=== PATIENT | female | born 1950 | race Caucasian/White ===

== ENCOUNTER 2017-12-26 10:59 | Inpatient (IN) ==
[2017-12-26] MEDS ORDERED: ALBUTEROL/IPRATROPIUM 2.5mg-0.5mg/3ml NEB AEROSOL ONE (11:12)
[2017-12-26] MEDS ORDERED: SALINE FLUSH 10ml SYRINGE IVF PRN (11:12)
--- NOTE | 2017-12-26 11:15 | Emergency Department Report ---
General Adult HPI - General Chief complaint: Shortness of Breath/Dyspnea Stated complaint: diff breathing Time Seen by Provider: 12/26/17 11:14 Source: patient, family Mode of arrival: wheelchair Limitations: no limitations - History of Present Illness HPI narrative: Patient is a 67-year-old female, history of lung cancer with multiple metastases different lobes, prior left lower lobe lobectomy. Patient resists the ER for increasing shortness of air. Patient chronically on 4 L by nasal cannula home last week patient's had increasing dyspnea especially with exertion. This is also exacerbated in the last 24 hours. Patient was turned up from her normal 4 L to 6 L by her family, finally today still not having adequate air intake patient was brought to the ER for evaluation on arrival patient placed on high flow nasal cannula at 8 to maintain oxygen saturations at 90%. Patient denies any chest pain at this time. - Related Data Home Medications Medication Instructions Recorded Confirmed Albuterol Sulfate [Proair Hfa] 2 puff INH Q4H PRN 12/26/17 12/26/17 Benzonatate 100 mg PO TID PRN 12/26/17 12/26/17 Erlotinib HCl [Tarceva] 100 mg PO DAILY 12/26/17 12/26/17 Gabapentin 300 mg PO TID 12/26/17 12/26/17 Hydrocodone/APAP 7.5/325 [[place] 1 tab PO QID PRN 12/26/17 12/26/17 7.5/325] Losartan [Cozaar] 50 mg PO DAILY 12/26/17 12/26/17 Megestrol Acetate 800 mg PO DAILY 12/26/17 12/26/17 Meloxicam 7.5 mg PO BID 12/26/17 12/26/17 Metformin HCl 1,000 mg PO BID 12/26/17 12/26/17 Promethazine + Cod Liq [Phenergan 5 ml PO Q4H PRN 12/26/17 12/26/17 + Codeine] Rivaroxaban [Xarelto] 20 mg PO HS 12/26/17 12/26/17 Triamcinolone 0.5% Cream 15 G 1 applicatio TOP BID PRN 12/26/17 12/26/17 [Kenalog 0.5%] Allergies Allergy/AdvReac Type Severity Reaction Status Date / Time adhesive tape Allergy Intermediate Itching Verified 12/26/17 11:21 promethazine AdvReac Unknown Verified 12/26/17 11:21 Review of Systems Constitutional: Denies: fever, chills, weakness Eyes: Denies: eye pain, eye discharge, vision change ENT: Denies: throat pain, dental pain Cardiovascular: Reports: dyspnea on exertion. Denies: chest pain, palpitations Respiratory: Reports: dyspnea. Denies: cough, wheezes Gastrointestinal: Denies: abdominal pain, nausea, vomiting Genitourinary: Denies: dysuria, frequency Neurological: Denies: headache Psychiatric: Denies: anxiety Endocrine: Reports: fatigue Hematological/Lymphatic: Denies: easy bleeding Physical Exam - General General appearance: alert - Head Head exam: normocephalic - Eye Eye exam: Present: PERRL, EOMI - ENT ENT exam: Present: normal oropharynx, mucous membranes moist, TM's normal bilaterally - Neck Neck exam: Present: full ROM, trachea midline - Chest Chest inspection: Present: symmetric chest wall rise - Respiratory Respiratory exam: Present: respiratory distress, prolonged expiratory phase, crackles. Absent: wheezes - Cardiovascular Cardiovascular exam: Present: regular rate, normal rhythm, normal heart sounds - Abdominal Exam Abdominal exam: Present: soft, normal bowel sounds. Absent: distention, tenderness - Skin Skin exam: Present: warm, dry - Neurological Exam Neurological exam: Present: alert, oriented X3 Medical Decision Making - Medical Records Medical records reviewed: Yes: I reviewed the patient's medical records. - Lab Data Lab results reviewed: Yes: I reviewed the patient's lab results. Result diagrams: 01/02/18 04:27 01/04/18 04:47 - Radiology Data Radiology results reviewed: Yes: I reviewed the patient's radiology results. Chest x-ray: Worsening left-sided disease CT chest: Small pulmonary embolus, worsening metastatic disease - EKG Data EKG #1 EKG attestation: Yes: I reviewed and interpreted this EKG. EKG shows normal: sinus rhythm Rate: normal Rhythm: NSR [place]/QRS: LBBB Interpretation: no acute changes Disposition Clinical Impression: Pulmonary embolism Disposition: To [facility] [place] Care Condition: Stable - Seen By: physician
[2017-12-26] MEDS ORDERED: METHYLPREDNISOLONE SOD SUCC 125mg/2ml INJECTION IVP ONE (11:27)
[2017-12-26] MEDS ORDERED: LEVOFLOXACIN PB 750 MG/150 ML BAG IV ONE (11:27)
[2017-12-26] MEDS ORDERED: ONDANSETRON 4 MG/2 ML INJECTION IVP ONE (11:50)
[2017-12-26] MEDS ORDERED: IOHEXOL 350mg/ml 75ml INJECTION ONE (12:32)
[2017-12-26] MEDS ORDERED: SALINE FLUSH 10ml SYRINGE ONE (12:32)
--- NOTE | 2017-12-26 12:39 | XRay Report ---
INDICATION: history of right lower lobe cancer/resection, increasing dys PROCEDURE: CHEST 2-VIEWS UPRIGHT (PA & LAT) Encounter: Initial COMPARISON: Chest CT dated June 21, 2017 FINDINGS: Worsening aeration of the left lung which is also completely consolidated with severe atelectasis and minimal aerated left upper lobe remaining. Large right upper lobe and right hilar masses are redemonstrated, similar to the prior CT scan. No pneumothorax. No significant right pleural fluid. Heart size and mediastinal contours are obscured by the left sided processes. Right IJ port catheter remains in place. Colonic interposition underneath the elevated left hemidiaphragm. Impression: Worsening appearance of the left chest with minimal aerated lung remaining. .
--- NOTE | 2017-12-26 13:18 | CT Scan Report ---
Indication: respiratory distress, right lower lobe lobectomy lung cancer PROCEDURE: CT angio pulm emboli: Encounter: Initial Comparison: Chest CT dated June 21, 2017 and CTA chest dated November 18, 2015 Technique: Axial CT pulmonary angiographic phase images were performed through the chest after the administration of intravenous contrast. Coronal and Sagittal MIP reconstructed images were created and reviewed. Automated Exposure Control and Iterative Reconstruction dose reducing techniques were utilized. Contrast: Omnipaque 350 60 mL Findings: Pulmonary arteries: Exam is diagnostic to the subsegmental pulmonary arterial level. There is abrupt cut off within a right lower lobe segmental pulmonary artery seen on axial thin slice image #122 and coronal image #56. This appearance is a change from the 2016 CTA. No other filling defects identified. Prior left lower lobectomy. Other findings: Enlarging right upper upper lobe pulmonary masses which have become confluent on axial image #16 measuring 7.1 x 5.1 cm in total size. When measured separately the more anterior right upper lobe mass measures 5.4 cm compared to 4.7 cm on the previous. Right lower lobe mass on axial image #26 is also enlarged now measuring 8.5 cm in maximal diameter compared to 8 cm previously. Additional smaller right middle lobe nodules show similar increases in size. There is more confluent mass in the right hilar region. Prior left lower lobectomy with significant consolidation in the remaining left upper lobe with multiple air bronchograms and bronchiectasis. There is minimal aerated lung tissue remaining. Small left pleural effusion. Heart size is stable. Small pericardial effusion anteriorly is new. No axillary adenopathy. The upper abdomen shows left renal stones but no acute findings. Impression: 1. Small area of right lower lobe PE. 2. Worsening pulmonary metastatic disease with minimal remaining aerated left lung parenchyma. Findings were discussed with the ordering physician at 1310 on December 26, 2017. .
[2017-12-26] MEDS ORDERED: NS FLUSH BAG 500ml IV PRN (14:16)
[2017-12-26] MEDS ORDERED: SENNA + DOCUSATE TABLET PO PRN (15:16)
[2017-12-26] MEDS ORDERED: ACETAMINOPHEN 325 MG TABLET PO PRN (15:16)
[2017-12-26] MEDS ORDERED: VANCOMYCIN - PHARMACY CONSULT MC ONE (15:16)
[2017-12-26] MEDS ORDERED: ONDANSETRON 4 MG/2 ML INJECTION IVP PRN (15:16)
--- NOTE | 2017-12-26 15:40 | Pharmacy Consult-Antibiotics ---
Pharmacy Consult-Vancomycin - Laboratory Information WBC 8.2 T/MM3 (4.5-11.0) 12/26/17 11:31 BUN 19.0 MG/DL (7-17) H 12/26/17 11:31 Creatinine 0.8 mg/dL (0.7-1.2) 12/26/17 11:31 - Consult Information VANCOMYCIN CONSULT: Today's SCr = 0.8 mg/dl. Will give Vancomycin 1250mg IV q18hrs. Will continue to monitor and make adjustments accordingly. Thank you.
[2017-12-26] MEDS: CEFEPIME 1 GM in NS 100 ML IV SCH ×2 (15:58→21:31)
[2017-12-26] MEDS: HYDROCODONE/APAP 7.5 MG/325 MG TABLET PO PRN ×2 (16:17→22:42)
[2017-12-26] MEDS ORDERED: BENZONATATE 100 MG CAPSULE PO PRN (17:14)
[2017-12-26] MEDS ORDERED: PROMETHAZINE/CODEINE ORAL LIQUID 5ml PO PRN (17:14)
[2017-12-26] MEDS ORDERED: HYDROCODONE/APAP 7.5 MG/325 MG TABLET PO PRN (17:14)
--- NOTE | 2017-12-26 17:17 | History & Physical Report ---
History of Present Illness Date: 12/27/17 Chief complaint: SOB HPI: 67-year-old woman with known metastatic lung cancer developing increasing shortness of breath over several days with malaise. She did state however she felt a sudden decline yesterday in respiratory function. 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 She feels altogether unwell and has been unable to get up and I even manage her own toileting at this point despite 3 to 4 L of oxygen. Emergency room in respiratory distress at 8 L to hold her saturation to 90% Past Medical History Medical History: Medical History (Last Updated 12/27/17 @ 21:45 by Jhonny García MD) COPD (chronic obstructive pulmonary disease) Metastatic primary lung cancer Pulmonary embolism Surgical History: Left upper lobectomy Family History: No Significant Family History - Social History Smoking status: Never smoker Previous occupational history: former nurse Medications Home Medications Medication Instructions Recorded Confirmed Type Albuterol Sulfate [Proair Hfa] 2 puff INH Q4H PRN 12/26/17 12/26/17 History Benzonatate 100 mg PO TID PRN 12/26/17 12/26/17 History Erlotinib HCl [Tarceva] 100 mg PO DAILY 12/26/17 12/26/17 History Gabapentin 300 mg PO TID 12/26/17 12/26/17 History Hydrocodone/APAP 7.5/325 [[place] 1 tab PO QID PRN 12/26/17 12/26/17 History 7.5/325] Losartan [Cozaar] 50 mg PO DAILY 12/26/17 12/26/17 History Megestrol Acetate 800 mg PO DAILY 12/26/17 12/26/17 History Meloxicam 7.5 mg PO BID 12/26/17 12/26/17 History Metformin HCl 1,000 mg PO BID 12/26/17 12/26/17 History Promethazine + Cod Liq [Phenergan 5 ml PO Q4H PRN 12/26/17 12/26/17 History + Codeine] Rivaroxaban [Xarelto] 20 mg PO HS 12/26/17 12/26/17 History Triamcinolone 0.5% Cream 15 G 1 applicatio TOP BID PRN 12/26/17 12/26/17 History [Kenalog 0.5%] Allergies Allergy/AdvReac Type Severity Reaction Status Date / Time adhesive tape Allergy Intermediate Itching Verified 12/26/17 11:21 promethazine AdvReac Unknown Verified 12/26/17 11:21 Exam Vital Signs: Temperature 96.9 F 12/26/17 15:16 Pulse Rate 103 H 12/26/17 15:16 Respiratory Rate 30 H 12/26/17 15:16 Blood Pressure 109/67 12/26/17 15:16 Pulse Oximetry 92 12/26/17 15:16 Telemetry Rhythm: Sinus Tachycardia Height/Weight/BMI: Height 4 ft 11 in Weight 54.2 kg Body Mass Index 24.1 - Constitutional Present: moderate distress, thin - Routine HEENT Exam Head: Present: normocephalic, atraumatic Eye: Present: EOMI, PERRL, normal accommodation ENT: Present: mucous membranes moist, dentition normal - Routine Respiratory Exam Present: accessory muscle use, dyspnea, respiratory distress, wheezes, diminished air movement - Routine Cardiovascular Exam Present: S1, S2, tachycardia - Routine Abdominal Exam Present: soft, normoactive bowel sounds. Absent: tenderness - Routine Extremities Exam Present: normal capillary refill - Routine Skin Exam Present: dry, warm - Routine Neurological Exam Present: alert, oriented X3, CN II-XII intact - Routine Psychiatric Exam Present: normal affect Results - Labs CBC & Chem 7: 12/26/17 11:31 12/26/17 11:31 Microbiology Results: Microbiology 12/26/17 11:45 Peripheral/Iv Start Blood Culture - Preliminary Culture Initiated - Results Pending 12/26/17 11:39 Peripheral/Iv Start Blood Culture - Preliminary Culture Initiated - Results Pending - Imaging and Cardiology Chest x-ray Status: image reviewed by me (likely development of obstructive pneumonia. Reviewed and correlated CT with this) Additional comments: CT angiogram read by Dr. Najera indicates small acute pulmonary embolus Assessment and Plan (1) Respiratory distress, acute Current visit: Yes Status: Acute (2) Obstructive pneumonia Current visit: Yes Status: Acute (3) Metastatic primary lung cancer Current visit: Yes Status: Acute (4) Pulmonary embolism Current visit: Yes Status: Acute Assessment and Plan: Her previous history pulmonary embolus and has been on maintenance dose of Xarelto. It appears that she has developed a new embolus as well but it is small. She is done very poorly in the past with difficult reactions in the skin from subcutaneous heparinoids and is currently declining the use of them. She may be willing to tolerate IV heparin drip form if this becomes required. We will return to high-dose Xarelto at this point and make sure that this is taken with food for better absorption. Appears in fairly significant distress at rest. I think she is okay to go to the floor she will need of BiPAP initially. There may be some obstructive pneumonia secondary to the multiple lesions of the lung cancer. For this reason she is being placed on broad-spectrum antibiotics. Will also get albuterol breathing treatments and steroids for reduction of airway edema. DISPOSITION: Patient certainly meets inpatient criteria and will likely have a stay of 3 days or longer anticipated. She does have a good support system at home and will likely return there. DVT Prophylaxis: Xarelto Resuscitation Status: Full Code - Physician Narrative Narrative: Date: 12/26/17 Time: 1717 Hospital Course Summary Disclaimer: The visit summary below is not to be considered part of the above Progress Note.
[2017-12-26] MEDS: RIVAROXABAN 15 MG TABLET PO SCH (17:27)
[2017-12-26] MEDS: GABAPENTIN 300 MG CAPSULE PO SCH (21:30)
[2017-12-27] MEDS ORDERED: METHYLPREDNISOLONE SOD SUCC 40mg/ml INJECTION IM SCH (01:00)
[2017-12-27] MEDS: METHYLPREDNISOLONE SOD SUCC 40mg/ml INJECTION IVP SCH ×3 (01:04→18:01)
[2017-12-27] MEDS: CEFEPIME 1 GM in NS 100 ML IV SCH ×4 (03:49→21:19)
[2017-12-27] MEDS: HYDROCODONE/APAP 7.5 MG/325 MG TABLET PO PRN ×2 (07:35→16:24)
[2017-12-27] MEDS: GABAPENTIN 300 MG CAPSULE PO SCH ×3 (09:25→21:19)
[2017-12-27] MEDS: MEGESTROL 800mg/20ml ORAL LIQUID PO SCH (09:25)
[2017-12-27] MEDS: RIVAROXABAN 15 MG TABLET PO SCH ×2 (09:25→18:01)
[2017-12-27] MEDS: LEVOFLOXACIN PB 750 MG/150 ML BAG IV SCH ×2 (14:03→14:37)
[2017-12-27 16:46] VITALS: BMI 24.5
--- NOTE | 2017-12-27 22:01 | Progress Note ---
- Date 12/27/17 Subjective: Wean from CPAP overnight to nasal cannula and states that she is breathing significant better today. She is feeling less ill and malaise as well. States she feels overall that she is improving Objective Vital signs: Temperature 95.9 F L 12/27/17 15:44 Pulse Rate 91 12/27/17 15:44 Respiratory Rate 20 12/27/17 15:44 Blood Pressure 125/63 12/27/17 15:44 Pulse Oximetry 98 12/27/17 21:19 Height/Weight/BMI: Height 4 ft 11 in Weight 55.1 kg Body Mass Index 24.5 - Constitutional Present: well nourished, well developed, cooperative - Routine HEENT Exam Eye: Present: EOMI ENT: Present: mucous membranes moist, dentition normal - Routine Respiratory Exam Present: respiratory distress, wheezes, diminished air movement - Routine Cardiovascular Exam Present: RRR. Absent: murmur - Routine Abdominal Exam Present: soft, normoactive bowel sounds, non distended. Absent: tenderness - Routine Extremities Exam Present: normal capillary refill - Routine Skin Exam Present: dry, warm - Routine Neurological Exam Present: alert, oriented X3, CN II-XII intact - Routine Lymphatic Exam Lymphatic: Absent: adenopathy - Routine Psychiatric Exam Present: normal affect Results - Labs CBC & Chem 7: 12/26/17 11:31 12/26/17 11:31 Microbiology Results: Microbiology 12/26/17 11:39 Peripheral/Iv Start Blood Culture - Preliminary No Growth After 1 Day 12/26/17 11:45 Peripheral/Iv Start Gram Stain - Final 12/26/17 11:45 Peripheral/Iv Start Blood Culture - Preliminary Streptococcus species Assessment and Plan (1) Respiratory distress, acute Current visit: Yes Status: Acute (2) Obstructive pneumonia Current visit: Yes Status: Acute (3) Metastatic primary lung cancer Current visit: Yes Status: Acute (4) Pulmonary embolism Current visit: Yes Status: Acute Assessment and Plan: Overall she appears to be showing improvement. Overall she appears to be shown improvement. Continue antibiotics for the suspected obstructive pneumonia. Continue albuterol and steroids for respiratory support. Pulmonary embolus small and likely will be effectively treated with the increased dosage of Xarelto. Wean oxygen to a baseline 3 to 4 L Remain in hospital at this time DVT Prophylaxis: Xarelto Resuscitation Status: Full Code - Time spent with patient Time with patient PN: 30 minutes - Physician Narrative Narrative: Date: 12/27/17 Time: 2156 Hospital Course Summary Disclaimer: The visit summary below is not to be considered part of the above Progress Note.
[2017-12-28] MEDS: METHYLPREDNISOLONE SOD SUCC 40mg/ml INJECTION IVP SCH ×3 (00:36→17:26)
[2017-12-28] MEDS: HYDROCODONE/APAP 7.5 MG/325 MG TABLET PO PRN ×2 (00:36→21:36)
[2017-12-28] MEDS: SALINE FLUSH 10ml SYRINGE IV PRN ×5 (00:38→17:27)
[2017-12-28] MEDS: CEFEPIME 1 GM in NS 100 ML IV SCH ×4 (02:58→21:39)
[2017-12-28] MEDS: MEGESTROL 800mg/20ml ORAL LIQUID PO SCH (09:00)
[2017-12-28] MEDS: GABAPENTIN 300 MG CAPSULE PO SCH ×3 (09:00→21:36)
[2017-12-28] MEDS: RIVAROXABAN 15 MG TABLET PO SCH ×2 (09:00→18:03)
[2017-12-28] MEDS: LEVOFLOXACIN PB 750 MG/150 ML BAG IV SCH (12:56)
--- NOTE | 2017-12-28 14:14 | Pharmacy Consult-Antibiotics ---
Pharmacy Consult-Vancomycin - Laboratory Information WBC 17.6 T/MM3 (4.5-11.0) H D 12/28/17 12:17 BUN 27.0 MG/DL (7-17) H 12/28/17 12:17 Creatinine 0.9 mg/dL (0.7-1.2) 12/28/17 12:17 - Consult Information VANCOMYCIN CONSULT: Vancomycin RANDOM Trough = 20.42 mcg/ml. Today's SCr = 0.9 mg/dl. Will change dose from 1250 mg IV q18hrs to Vancomycin 1000 mg IV q12hrs. Patient's new calculated dose from the random Vanco level 8 hours after her 1250 mg dose showed that her interval should be decreased from q18hrs to q12hrs and the dose adjusted with that interval change. This change should keep her trough from going below 15 but not above 20. Will continue to monitor and make adjustments accordingly. Thank you. Estefania Butcher, PharmD
[2017-12-28] MEDS: VANCOMYCIN 1,000 MG in NS 250 ML IV SCH (17:26)
[2017-12-29] MEDS: HYDROCODONE/APAP 7.5 MG/325 MG TABLET PO PRN ×4 (02:00→23:28)
[2017-12-29] MEDS: CEFEPIME 1 GM in NS 100 ML IV SCH ×4 (03:31→20:39)
[2017-12-29] MEDS: VANCOMYCIN 1,000 MG in NS 250 ML IV SCH ×2 (05:55→16:21)
[2017-12-29] MEDS: MEGESTROL 800mg/20ml ORAL LIQUID PO SCH (09:37)
[2017-12-29] MEDS: GABAPENTIN 300 MG CAPSULE PO SCH ×3 (09:37→20:39)
[2017-12-29] MEDS: RIVAROXABAN 15 MG TABLET PO SCH ×2 (09:37→17:15)
[2017-12-29] MEDS: SALINE FLUSH 10ml SYRINGE IV PRN ×3 (09:41→16:22)
[2017-12-29] MEDS: LEVOFLOXACIN PB 750 MG/150 ML BAG IV SCH (12:22)
--- NOTE | 2017-12-29 18:58 | Progress Note ---
- Date 12/28/17 Subjective: Patient states feeling tired but overall feels that her breathing has been improving. Admits to feeling restless at night and having difficulty sleeping however. Objective Vital signs: Temperature 96.8 F 12/29/17 14:54 Pulse Rate 89 12/29/17 14:54 Respiratory Rate 22 12/29/17 14:54 Blood Pressure 114/65 12/29/17 14:54 Pulse Oximetry 93 12/29/17 14:54 Rhythm: Normal Sinus Rhythm Height/Weight/BMI: Height 4 ft 11 in Weight 58.9 kg Body Mass Index 24.5 - Constitutional Present: no acute distress, well nourished, well developed, cooperative - Routine HEENT Exam Eye: Present: EOMI ENT: Present: mucous membranes moist, dentition normal - Routine Respiratory Exam Present: diminished air movement. Absent: respiratory distress, wheezes - Routine Cardiovascular Exam Present: RRR. Absent: murmur - Routine Abdominal Exam Present: soft, normoactive bowel sounds, non distended. Absent: tenderness - Routine Extremities Exam Present: normal capillary refill - Routine Skin Exam Present: dry, warm - Routine Neurological Exam Present: alert, oriented X3, CN II-XII intact - Routine Lymphatic Exam Lymphatic: Absent: adenopathy - Routine Psychiatric Exam Present: normal affect Results - Labs CBC & Chem 7: 12/29/17 03:56 12/29/17 03:56 Microbiology Results: Microbiology 12/26/17 11:39 Peripheral/Iv Start Blood Culture - Preliminary No Growth After 3 Days 12/26/17 11:45 Peripheral/Iv Start Gram Stain - Final 12/26/17 11:45 Peripheral/Iv Start Blood Culture - Preliminary Streptococcus viridans group Assessment and Plan (1) Respiratory distress, acute Current visit: Yes Status: Acute (2) Obstructive pneumonia Current visit: Yes Status: Acute (3) Metastatic primary lung cancer Current visit: Yes Status: Acute (4) Pulmonary embolism Current visit: Yes Status: Acute Assessment and Plan: Patient does appear less acutely ill today. Continue antibiotics broad- spectrum. Patient remains on oxygen however she is on 3 L at base level at home. Would consider anxiolytic medications as necessary. Remain in hospital at this time - Physician Narrative Narrative: Date: 12/29/17 Time: 1857 Hospital Course Summary Disclaimer: The visit summary below is not to be considered part of the above Progress Note.
--- NOTE | 2017-12-29 18:59 | Progress Note ---
- Date 12/29/17 Subjective: Patient having some increased respiratory distress and requested resumption of her albuterol inhaler Objective Vital signs: Temperature 96.8 F 12/29/17 14:54 Pulse Rate 89 12/29/17 14:54 Respiratory Rate 22 12/29/17 14:54 Blood Pressure 114/65 12/29/17 14:54 Pulse Oximetry 93 12/29/17 14:54 Rhythm: Normal Sinus Rhythm Height/Weight/BMI: Height 4 ft 11 in Weight 58.9 kg Body Mass Index 24.5 - Constitutional Present: well developed - Routine HEENT Exam Eye: Present: EOMI ENT: Present: mucous membranes moist, dentition normal - Routine Respiratory Exam Present: accessory muscle use, wheezes - Routine Cardiovascular Exam Present: RRR. Absent: murmur - Routine Abdominal Exam Present: soft, normoactive bowel sounds, non distended. Absent: tenderness - Routine Extremities Exam Present: normal capillary refill - Routine Skin Exam Present: dry, warm - Routine Neurological Exam Present: alert, oriented X3, CN II-XII intact - Routine Lymphatic Exam Lymphatic: Absent: adenopathy - Routine Psychiatric Exam Present: normal affect Results - Labs CBC & Chem 7: 12/29/17 03:56 12/29/17 03:56 Microbiology Results: Microbiology 12/26/17 11:39 Peripheral/Iv Start Blood Culture - Preliminary No Growth After 3 Days 12/26/17 11:45 Peripheral/Iv Start Gram Stain - Final 12/26/17 11:45 Peripheral/Iv Start Blood Culture - Preliminary Streptococcus viridans group Assessment and Plan (1) Respiratory distress, acute Current visit: Yes Status: Acute (2) Obstructive pneumonia Current visit: Yes Status: Acute (3) Metastatic primary lung cancer Current visit: Yes Status: Acute (4) Pulmonary embolism Current visit: Yes Status: Acute Assessment and Plan: Patient has been placed on DuoNeb treatment 4 times a day. Breakthrough medication of albuterol at at nebulized unit dose as well. Patient has been feeling moderately nervous and for this reason we're discontinuing steroids at this time Remain on antibiotics for likely post obstructive pneumonia. Continue on Xarelto has no alternative to heparinoids the patient's request. Remain in hospital at this time DVT Prophylaxis: Xarelto - Physician Narrative Narrative: Date: 12/29/17 Time: 1857 Hospital Course Summary Disclaimer: The visit summary below is not to be considered part of the above Progress Note.
[2017-12-29] MEDS: ALBUTEROL/IPRATROPIUM 2.5mg-0.5mg/3ml NEB AEROSOL SCH (19:14)
[2017-12-29] MEDS: NS FLUSH BAG 500ml IV PRN (20:41)
[2017-12-29] MEDS: ALPRAZolam 0.25 MG TABLET PO PRN (21:04)
[2017-12-30] MEDS: CEFEPIME 1 GM in NS 100 ML IV SCH ×4 (03:33→21:49)
[2017-12-30] MEDS: ALPRAZolam 0.25 MG TABLET PO PRN ×3 (03:58→20:24)
[2017-12-30] MEDS: HYDROCODONE/APAP 7.5 MG/325 MG TABLET PO PRN ×3 (05:33→23:34)
[2017-12-30] MEDS: VANCOMYCIN 1,000 MG in NS 250 ML IV SCH ×2 (05:34→18:32)
[2017-12-30] MEDS: ALBUTEROL/IPRATROPIUM 2.5mg-0.5mg/3ml NEB AEROSOL SCH ×4 (08:04→19:05)
[2017-12-30] MEDS: GABAPENTIN 300 MG CAPSULE PO SCH ×3 (09:20→21:55)
[2017-12-30] MEDS: RIVAROXABAN 15 MG TABLET PO SCH ×2 (09:20→18:34)
[2017-12-30] MEDS: MEGESTROL 800mg/20ml ORAL LIQUID PO SCH (09:20)
[2017-12-30] MEDS: FUROSEMIDE 40 MG/4 ML INJECTION IVP SCH ×2 (09:44→15:36)
[2017-12-30] MEDS: LEVOFLOXACIN PB 750 MG/150 ML BAG IV SCH (12:51)
--- NOTE | 2017-12-30 17:39 | Pulmonology Consult Note ---
History of Present Illness Consult date: 12/30/17 Requesting physician: Jhonny García Reason for consult: dyspnea, hypoxemia Chief complaint: short of breath History of present illness: HPI: 67-year-old woman with known metastatic lung cancer, NSCLCA, adenoCA. She was under the care of Dr Porter, but she states that when she was out of treatment options, it seemed as though he "gave up on her." She then sought the care of an oncologist in and was started on Tarceva. She has history of MARILYN lobectomy with subsequent recurrence of her tumor,despite chemoTx. She has now progressed on Tarceva. She is admitted after developing increasing shortness of breath over several days with malaise. She did state however she felt a sudden decline yesterday in respiratory function. She is normally on O2 but is requiring high flow cannula to maintain O2 sats. 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 She feels altogether unwell and has been unable to get up and even manage her own toileting. Emergency room in respiratory distress at 8 L to hold her saturation to 90%. She does have history of PE and was on maintenance dose of Xarelto. She was found to have a small PE by CTA on admission. She states she wants to do anything to stay alive and isn't ready to "kick the bucket." Past Medical History Medical History: Medical History (Last Updated 12/27/17 @ 21:45 by Jhonny García MD) COPD (chronic obstructive pulmonary disease) Metastatic primary lung cancer Pulmonary embolism Surgical History: Left upper lobectomy Family History: No Significant Family History - Social History Smoking status: Never smoker Previous occupational history: former nurse [employer] Patient Stated Medical History Cataracts Yes: R eye Dental Problems Yes: sensitivity due to chemo Hypertension Yes Bronchitis Yes Pneumonia Yes Other Respiratory Yes: pneumothorax Diabetes Mellitus Type 2 Yes Gastroesophageal Reflux Yes Disease Anemia Yes Osteoarthritis Yes MRSA Yes Shingles Yes Blood Transfusions Yes Chemotherapy Yes Clinic Medical History (Last Updated 12/27/17 @ 21:45 by Jhonny García MD) COPD (chronic obstructive pulmonary disease) (Acute Medical) Metastatic primary lung cancer (Acute Medical) Pulmonary embolism (Acute Medical) Surgical History: Left upper lobectomy - Social History Smoking status: Never smoker Previous occupational history: former nurse Medications Home Medications Medication Instructions Recorded Confirmed Type Albuterol Sulfate [Proair Hfa] 2 puff INH Q4H PRN 12/26/17 12/26/17 History Benzonatate 100 mg PO TID PRN 12/26/17 12/26/17 History Erlotinib HCl [Tarceva] 100 mg PO DAILY 12/26/17 12/26/17 History Gabapentin 300 mg PO TID 12/26/17 12/26/17 History Hydrocodone/APAP 7.5/325 [[place] 1 tab PO QID PRN 12/26/17 12/26/17 History 7.5/325] Losartan [Cozaar] 50 mg PO DAILY 12/26/17 12/26/17 History Megestrol Acetate 800 mg PO DAILY 12/26/17 12/26/17 History Meloxicam 7.5 mg PO BID 12/26/17 12/26/17 History Metformin HCl 1,000 mg PO BID 12/26/17 12/26/17 History Promethazine + Cod Liq [Phenergan 5 ml PO Q4H PRN 12/26/17 12/26/17 History + Codeine] Rivaroxaban [Xarelto] 20 mg PO HS 12/26/17 12/26/17 History Triamcinolone 0.5% Cream 15 G 1 applicatio TOP BID PRN 12/26/17 12/26/17 History [Kenalog 0.5%] Allergies Allergy/AdvReac Type Severity Reaction Status Date / Time adhesive tape Allergy Intermediate Itching Verified 12/26/17 11:21 promethazine AdvReac Unknown Verified 12/26/17 11:21 Exam Vital signs: Temperature 97.8 F 12/30/17 14:57 Pulse Rate 118 H 12/30/17 14:57 Respiratory Rate 30 H 12/30/17 14:59 Blood Pressure 140/74 H 12/30/17 14:57 Pulse Oximetry 92 12/30/17 14:59 - Constitutional mild distress Comments: chronically ill appearing - Routine HEENT Exam Eye: Absent: conjunctival icterus ENT: Present: mucous membranes dry - Routine Neck Exam Present: supple, trachea midline - Routine Respiratory Exam Present: accessory muscle use, rhonchi, wheezes - Routine Cardiovascular Exam Present: RRR - Routine Abdominal Exam Present: soft. Absent: guarding - Routine Extremities Exam Absent: cyanosis, clubbing - Routine Skin Exam Absent: rash - Routine Neurological Exam Present: alert, oriented X3. Absent: motor deficit - Routine Psychiatric Exam Present: anxious Results - Laboratory Findings CBC and BMP: 12/29/17 03:56 12/29/17 03:56 PT/INR, D-dimer D-Dimer 6511 NG/ML (0-230) H 12/26/17 11:31 Abnormal lab findings: Abnormal Labs 12/26/17 12/26/17 12/26/17 11:31 11:31 11:31 WBC RBC 3.65 L Hgb 10.4 L Hct 31.8 L Neut % (Auto) 80.4 H Lymph % (Auto) 8.5 L Lymph # (Auto) 0.7 L Neutrophils % (Manual) Lymphocytes % (Manual) Neutrophils # (Manual) Lymphocytes # (Manual) Monocytes # (Manual) D-Dimer 6511 H Chloride 109 H BUN 19.0 H BUN/Creatinine Ratio Glucose Calculated Osmolality Calcium 8.0 L Alkaline Phosphatase 152 H NT-Pro-B Natriuret Pep 2650 H Total Protein 6.0 L Albumin 3.1 L 12/28/17 12/28/17 12/29/17 12:17 12:17 03:56 WBC 17.6 H D 17.1 H RBC 3.59 L 3.56 L Hgb 10.2 L 10.1 L Hct 31.4 L 31.2 L Neut % (Auto) Lymph % (Auto) Lymph # (Auto) Neutrophils % (Manual) 93.0 H 94.0 H Lymphocytes % (Manual) 1.0 L 1.0 L Neutrophils # (Manual) 16.4 H 16.1 H Lymphocytes # (Manual) 0.2 L 0.2 L Monocytes # (Manual) 0.9 H 0.9 H D-Dimer Chloride 109 H BUN 27.0 H BUN/Creatinine Ratio 30 H Glucose 271 H Calculated Osmolality 288 H Calcium 8.3 L Alkaline Phosphatase NT-Pro-B Natriuret Pep Total Protein Albumin 12/29/17 03:56 WBC RBC Hgb Hct Neut % (Auto) Lymph % (Auto) Lymph # (Auto) Neutrophils % (Manual) Lymphocytes % (Manual) Neutrophils # (Manual) Lymphocytes # (Manual) Monocytes # (Manual) D-Dimer Chloride BUN 27.0 H BUN/Creatinine Ratio 30 H Glucose 275 H Calculated Osmolality Calcium 8.1 L Alkaline Phosphatase NT-Pro-B Natriuret Pep Total Protein Albumin - Diagnostic Findings Chest x-ray: report reviewed, image reviewed CT scan - chest: report reviewed, image reviewed Assessment and Plan (1) Acute and chronic respiratory failure with hypoxia Status: Acute Assessment and plan: Likely due to lung cancer, pneumonia and PE. Currently on 10 lpm O2. Does not tolerate NIPPV or Vapotherm due to anxiety. If her O2 sats increase I would recommend trying Vapotherm (HHFNC) again to keep sat > 90% and minimize work of breathing. Current Visit: Yes (2) Obstructive pneumonia Status: Acute Assessment and plan: I agree with empiric antibiotics (Cefepime and Vanco) for pneumonia. She is immune compromised and at risk for severe pneumonia. She is also at risk for drug resistant pathogens due to her medical history. Blood culture 1/2 positive for Strep viridans, unclear significance. Current Visit: Yes (3) Metastatic primary lung cancer Status: Acute Assessment and plan: history of MARILYN lobectomy with recurrence. She has been under treatment with chemoTx and now Tarceva and appears to be worsening in spite of this. Unfortunately her prognosis is very poor Current Visit: Yes - Time Spent With Patient Total time spent is greater than 50% in coordination of care (as documented) at patient's floor/unit and/or counseling patient: 25 - 35 minutes
--- NOTE | 2017-12-30 19:49 | Progress Note ---
- Date 12/30/17 Subjective: On same page this morning she attest to having been increasingly short of breath overnight. On review of chart although the patient is not getting any significant infusions of IV fluids beyond just her multiple antibiotic regimens , she is up 6 kg and will she cannot catch her breath. Objective Vital signs: Temperature 97.8 F 12/30/17 14:57 Pulse Rate 118 H 12/30/17 14:57 Respiratory Rate 18 12/30/17 19:05 Blood Pressure 140/74 H 12/30/17 14:57 Pulse Oximetry 96 12/30/17 19:05 Rhythm: Sinus Tachycardia Height/Weight/BMI: Height 4 ft 11 in Weight 61.6 kg Body Mass Index 24.5 - Constitutional Present: moderate distress, well nourished, well developed, cooperative - Routine HEENT Exam Head: Present: normocephalic, atraumatic Eye: Present: EOMI ENT: Present: mucous membranes moist, dentition normal - Routine Respiratory Exam Present: accessory muscle use, rhonchi. Absent: wheezes - Routine Cardiovascular Exam Present: S1, S2, tachycardia. Absent: murmur - Routine Abdominal Exam Present: soft, normoactive bowel sounds, non distended. Absent: tenderness - Routine Extremities Exam Present: normal capillary refill - Routine Skin Exam Present: dry, warm - Routine Neurological Exam Present: alert, oriented X3, CN II-XII intact - Routine Lymphatic Exam Lymphatic: Absent: adenopathy - Routine Psychiatric Exam Present: normal affect Results - Labs CBC & Chem 7: 12/29/17 03:56 12/29/17 03:56 Microbiology Results: Microbiology 12/26/17 11:39 Peripheral/Iv Start Blood Culture - Preliminary No Growth After 4 Days 12/26/17 11:45 Peripheral/Iv Start Gram Stain - Final 12/26/17 11:45 Peripheral/Iv Start Blood Culture - Preliminary Streptococcus viridans group Assessment and Plan (1) Respiratory distress, acute Current visit: Yes Status: Acute (2) Obstructive pneumonia Current visit: Yes Status: Acute (3) Metastatic primary lung cancer Current visit: Yes Status: Acute (4) Pulmonary embolism Current visit: Yes Status: Acute Assessment and Plan: Account for the developing fluid overload in this patient but we're starting around with 40 mg of Lasix this morning to be repeated again at midafternoon. Hopefully some diuresis will show improvement for her fluid overload. She had been put on a very small dose of Xanax overnight (0.25 mg Q6 hours) this does appear to be helping but it makes her acutely confused and family does show some appropriate concern for this side effect despite the explanation. I've ordered a chest x-ray and this does not appear to be significantly different. EKG is also reassuring that there is been no acute changes. I've explained to the patient that this is not a positive step but we will attempt give fluids off and hopefully improve her overall respiratory distress. I've also contacted pulmonology my appreciation to Dr. Rodriguez for coming to see her so promptly. He recommends HCAP antibiotics and transition off of Xarelto and place her on heparin drip without a loading dose Patient is in fairly significant respiratory distress and critically ill, showing only some mild improvement toward the end of the evening. 50 minutes critical care time without procedures performed. At this time patient remains a full code. - Physician Narrative Narrative: Date: 12/30/17 Time: 1948 Hospital Course Summary Disclaimer: The visit summary below is not to be considered part of the above Progress Note.
[2017-12-30] MEDS: ALBUTEROL 2.5mg/3ml (0.083%) NEB AEROSOL PRN ×2 (21:15→23:42)
[2017-12-30] MEDS ORDERED: FALL RISK - PHARMACY CONSULT MC ONE (23:50)
[2017-12-31] MEDS: ALPRAZolam 0.25 MG TABLET PO PRN ×2 (02:30→08:46)
[2017-12-31] MEDS: CEFEPIME 1 GM in NS 100 ML IV SCH ×4 (03:50→21:26)
[2017-12-31] MEDS: ALBUTEROL/IPRATROPIUM 2.5mg-0.5mg/3ml NEB AEROSOL SCH ×4 (06:37→18:38)
--- NOTE | 2017-12-31 07:19 | XRay Report ---
Indication: dyspnea, 6kg weight gain XR chest 1V: Comparison: 12/26/2017 Technique: Single portable upright chest Findings: Patient continues to show elevated left diaphragm with patchy bilateral infiltrative changes and possible more localized mass density in the right side. Overall finding seems fairly similar to previous examinations. Port remains in place. Overall aeration continues to be poor particularly on the left side. Impression: 1. Similar heart size the previous study with increased density on both sides of the chest. Right side continues to show potentially more localized density with more diffuse infiltrative changes persisting on the left. .
[2017-12-31] MEDS: HYDROCODONE/APAP 7.5 MG/325 MG TABLET PO PRN ×2 (07:20→19:47)
[2017-12-31] MEDS: ALBUTEROL 2.5mg/3ml (0.083%) NEB AEROSOL PRN ×3 (08:35→20:48)
[2017-12-31] MEDS: RIVAROXABAN 15 MG TABLET PO SCH (08:46)
[2017-12-31] MEDS: GABAPENTIN 300 MG CAPSULE PO SCH ×3 (08:46→23:35)
[2017-12-31] MEDS: MEGESTROL 800mg/20ml ORAL LIQUID PO SCH (08:47)
[2017-12-31] MEDS: VANCOMYCIN 1,000 MG in NS 250 ML IV SCH (08:47)
[2017-12-31] MEDS: SALINE FLUSH 10ml SYRINGE IV PRN ×5 (08:48→21:26)
[2017-12-31] MEDS: NS FLUSH BAG 500ml IV PRN (08:48)
[2017-12-31] MEDS ORDERED: HEPARIN - PHARMACY CONSULT MC ONE (09:26)
[2017-12-31] MEDS: METHYLPREDNISOLONE SOD SUCC 125mg/2ml INJECTION IVP SCH ×2 (09:52→21:26)
[2017-12-31] MEDS: LEVOFLOXACIN PB 750 MG/150 ML BAG IV SCH (13:38)
--- NOTE | 2017-12-31 14:17 | Pharmacy Consult-Antibiotics ---
Pharmacy Consult-Vancomycin - Laboratory Information WBC 17.1 T/MM3 (4.5-11.0) H 12/29/17 03:56 BUN 27.0 MG/DL (7-17) H 12/29/17 03:56 Creatinine 0.9 mg/dL (0.7-1.2) 12/29/17 03:56 Vancomycin Trough 28.36 ug/mL (15-20) H* 12/31/17 04:31 - Consult Information VANCOMYCIN CONSULT: Day 6 BRIAN is a 67-year-old woman with known metastatic lung cancer who developed increasing shortness of breath over several days with malaise. She did state however she felt a sudden decline on 12/25 in respiratory function. 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 She felt altogether unwell and has been unable to get up and even manage her own toileting at that point despite 3 to 4 L of oxygen. In the Emergency Room the patient was in respiratory distress at 8 L to hold her saturation to 90 %. Patient assessment: 1) acute respiratory distress, 2) Obstructive pneumonia, 3) Metastatic primary lung cancer, and 4) Pulmonary embolism. I changed the Vancomycin to 1,250 mg mg IV q18hrs starting 12/31 @ 1300. The pharmacy will continue to monitor and make adjustments accordingly. Thank you for the Consult, Maynor Sam, Pharmacist.
--- NOTE | 2017-12-31 14:58 | Pharmacy Consult ---
Pharmacy Consult-Heparin - Laboratory Information Heparin Plt Count 270 T/MM3 (130-400) 12/31/17 13:48 APTT 44.4 SEC (24-36) H 12/31/17 13:47 - Consult Information HEPARIN CONSULT: Day One Dx: Pulmonary embolism BRIAN is a 67-year-old woman with known metastatic lung cancer who developed increasing shortness of breath over several days with malaise. She did state however she felt a sudden decline on 12/25 in respiratory function. 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 She felt altogether unwell and has been unable to get up and even manage her own toileting at that point despite 3 to 4 L of oxygen. In the Emergency Room the patient was in respiratory distress at 8 L to hold her saturation to 90 %. Patient assessed: 1) acute repiratory distress, 2) Obstructive penumonia, 3) Metastatic primary lung cancer, and 4) Pulmonary embolism. Baseline PTT = 44.4 Sec. Baseline platelet count = 270 T/mm3. PTT Target Range = 55-83 Will give Heparin Bolus of 2,000 units, start Heparin Drip at 1,000 units/hr ( 25 ml/hr). The Heparin bag is 20,000 units in D5W 500ml. Started with a lower bolus because patient has been Xarelto 15 mg po bid and had last dose this morning. I am ordering one-half the normal bolus called for in this case. The Pharmacy will continue to monitor and make adjustments accordingly. Thank you, Maynor Sam, Pharmacist.
[2017-12-31] MEDS ORDERED: HEPARIN 1,000unit/ml INJECTION 10ml IVP ONE (15:00)
[2017-12-31] MEDS ORDERED: HEPARIN DRIP 20,000 UNIT/500 ML BAG IV SCH (15:00)
[2017-12-31] MEDS: HALOPERIDOL 5 MG/ML INJECTION IVP PRN (18:40)
--- NOTE | 2017-12-31 19:15 | Progress Note ---
- Date 12/31/17 Subjective: Patient's respiratory distress is still significant but she is having less of a sensation of fluid overload. She still states that she cannot catch her breath and is absolutely exhausted which is the attempt to use the bathroom. A long two -part discussion was ensued discussing code status with patient where she initially placed yourself as it do not intubate. Later this afternoon a 2nd discussion was had with her son and several daughters present in which they as a group opted to not perform any physical cardiopulmonary resuscitation Objective Vital signs: Temperature 98.4 F 12/31/17 07:00 Pulse Rate 115 H 12/31/17 17:37 Respiratory Rate 20 12/31/17 18:38 Blood Pressure 133/69 12/31/17 17:37 Pulse Oximetry 100 12/31/17 18:38 Rhythm: Sinus Tachycardia Height/Weight/BMI: Height 4 ft 11 in Weight 61 kg Body Mass Index 24.5 - Constitutional Present: moderate distress, well developed, cooperative - Routine HEENT Exam Head: Present: normocephalic, atraumatic Eye: Present: EOMI, normal accommodation ENT: Present: mucous membranes moist, dentition normal - Routine Respiratory Exam Present: respiratory distress, rhonchi, wheezes, diminished air movement - Routine Cardiovascular Exam Present: RRR. Absent: murmur - Routine Abdominal Exam Present: soft, normoactive bowel sounds, non distended. Absent: tenderness - Routine Extremities Exam Present: normal capillary refill - Routine Skin Exam Present: dry, warm - Routine Neurological Exam Present: alert, oriented X3, CN II-XII intact - Routine Lymphatic Exam Lymphatic: Absent: adenopathy - Routine Psychiatric Exam Present: normal affect Results - Labs CBC & Chem 7: 12/31/17 13:48 12/31/17 13:48 Microbiology Results: Microbiology 12/26/17 11:39 Peripheral/Iv Start Blood Culture - Final No Growth After 5 Days 12/26/17 11:45 Peripheral/Iv Start Gram Stain - Final 12/26/17 11:45 Peripheral/Iv Start Blood Culture - Preliminary Streptococcus viridans group - ABG Interpretation ABG results: 12/31/17 14:01 ABG pH 7.324 L ABG pCO2 46 H ABG pO2 110.1 H ABG HCO3 23.6 ABG Total CO2 25.0 ABG O2 Saturation 97.8 ABG Base Excess -2.5 L Assessment and Plan (1) Respiratory distress, acute Current visit: Yes Status: Acute (2) Obstructive pneumonia Current visit: Yes Status: Acute (3) Metastatic primary lung cancer Current visit: Yes Status: Acute (4) Pulmonary embolism Current visit: Yes Status: Acute Assessment and Plan: Patient did not improve significantly with Lasix. Although she believes that she is urinate a lot her weights of not decline much. Still she does sound less wet on auscultation today. We will continue the broad-spectrum age Antibiotics cefepime vancomycin and Levaquin for her at this time. She was unavailable therm throughout the majority of the day but I believe that she may benefit from BiPAP. We are placing her back on BiPAP again for the night. And based upon her respiratory improvement then we may make further decisions. I also restarted her on her Solu-Medrol because ceasing this did coincide with her decline and respiratory function. She is noted lead anxious due to the understanding of her impending demise from cancer as well as the physiologic respiratory distress. She becomes altered on Xanax so we are performing a trial of low doses of Geodon as well as Ativan as alternatives. We can make further modifications based upon a response to those Outcome remains poor and I am uncertain if she will even improve enough to leave the hospital. She does remain significantly hopeful they'll and motivated because of her many children and grandchildren to put up the best fight that she possibly can After 2 conversations each 20 minutes or longer with family, the decision to abstain from intubation and cardiopulmonary resuscitation has been made. She is comfortable with the idea of antiarrhythmic's and a chemical code - Time spent with patient Time with patient PN: 50 minutes - Physician Narrative Physician: other Narrative: Date: 12/31/17 Time: 1911 Hospital Course Summary Disclaimer: The visit summary below is not to be considered part of the above Progress Note.
[2018-01-01] MEDS: CEFEPIME 1 GM in NS 100 ML IV SCH ×4 (03:06→21:04)
[2018-01-01] MEDS: SALINE FLUSH 10ml SYRINGE IV PRN ×10 (03:06→22:17)
[2018-01-01] MEDS: ALBUTEROL/IPRATROPIUM 2.5mg-0.5mg/3ml NEB AEROSOL SCH ×4 (08:13→22:36)
[2018-01-01] MEDS: GABAPENTIN 300 MG CAPSULE PO SCH ×3 (09:00→21:04)
[2018-01-01] MEDS: MEGESTROL 800mg/20ml ORAL LIQUID PO SCH (09:01)
[2018-01-01] MEDS: METHYLPREDNISOLONE SOD SUCC 125mg/2ml INJECTION IVP SCH ×2 (09:01→21:04)
[2018-01-01] MEDS: HEPARIN DRIP 20,000 UNIT/500 ML BAG IV SCH (09:09)
[2018-01-01] MEDS: HALOPERIDOL 5 MG/ML INJECTION IVP PRN (10:37)
--- NOTE | 2018-01-01 11:41 | Progress Note ---
- Date 01/01/18 Subjective: Patient was hallucinating this morning, thinking there was a man at the end of her bed. She's been refusing bipap. She hasn't been eating well and when she does eat she becomes dyspneic. She's been started on Haldol and lorazepam was ordered in place of xanax. Objective Vital signs: Temperature 97.7 F 01/01/18 11:34 Pulse Rate 114 H 01/01/18 11:34 Respiratory Rate 20 01/01/18 11:34 Blood Pressure 130/70 01/01/18 11:34 Pulse Oximetry 95 01/01/18 11:34 Rhythm: Sinus Tachycardia Height/Weight/BMI: Height 1.5 m Weight 62.7 kg Body Mass Index 24.5 - Constitutional Present: moderate distress, well nourished, well developed - Routine HEENT Exam Eye: Absent: conjunctival icterus, scleral injection - Routine Respiratory Exam Present: accessory muscle use, decreased breath sounds, respiratory distress, rhonchi, wheezes - Routine Cardiovascular Exam Present: RRR, S1, S2 - Routine Abdominal Exam Present: soft, normoactive bowel sounds, non distended, non tender - Routine Extremities Exam Present: no edema - Routine Musculoskeletal Exam Musculoskeletal: Present: moving extremities well - Routine Skin Exam Present: intact, dry, warm - Routine Neurological Exam Present: alert, moving all extremities. Absent: oriented X3 - Routine Psychiatric Exam Absent: normal thought process Results - Labs CBC & Chem 7: 01/02/18 04:27 01/02/18 04:27 Microbiology Results: Microbiology 12/26/17 11:39 Peripheral/Iv Start Blood Culture - Final No Growth After 5 Days 12/26/17 11:45 Peripheral/Iv Start Gram Stain - Final 12/26/17 11:45 Peripheral/Iv Start Blood Culture - Preliminary Streptococcus viridans group - ABG Interpretation ABG results: 12/31/17 14:01 ABG pH 7.324 L ABG pCO2 46 H ABG pO2 110.1 H ABG HCO3 23.6 ABG Total CO2 25.0 ABG O2 Saturation 97.8 ABG Base Excess -2.5 L Assessment and Plan (1) Pulmonary embolism Current visit: Yes Status: Acute (2) Respiratory distress, acute Current visit: Yes Status: Acute (3) Obstructive pneumonia Current visit: Yes Status: Acute (4) Metastatic primary lung cancer Current visit: Yes Status: Acute Assessment and Plan: Assessment Respiratory failure requiring BiPAP PE Obstructive PNA Immunocompromised d/t metastatic NSCLCA, adenocarcinoma Acute encephalopathy with reported visual hallucinations COPD Anxiety DM2 HTN Dyslipidemia Anemia Psoriasis Plan WBC has been climbing, though she remains on broad spectrum abx - vanco, cefepime, levaquin -- steroids were reintroduced on 12/31/17 corresponding to a resp decline -- ? steroids contributing to hallucinations though benefit may outweigh risk. Today ch day 6 of abx -- will dc levaquin given encephalopathy. Will dc hydrocodone, promethazine/codeine (allergy noted though this med was on her home med list). Schedule haldol 1 mg Q4h for encephalopathy. ABG yesterday was not showing significant resp acidosis/co2 retention. Weight continues to climb -- will repeat CXR today. cont heparin for PE Start monitoring blood glucose, add SSI and resume metformin if PO intake improves BP under reasonable control; losartan remains on hold. Pt was seen and plan formulated in conjunction with Dr. García. Prognosis: poor. High risk medications in use. DVT Prophylaxis: Heparin drip Resuscitation Status: Limited Code - Physician Narrative Physician: other Narrative: Date: 01/01/18 Time: 1138 Seen and examined patient on same day as the above note from nurse practitioner Jessy Osborn. Agree with all of note, physical, assessment and plan. Comprehensive physical findings correlate to the above note Exam: Gen.: significant respiratory distress on Vasotherm and confused HEENT: normocephalic atraumatic, oral mucosa moderately dry neck: no lymphadenopathy no jugular venous distention respiratory: increased work of breathing with decreased air transmission and significant rhonchi cardiovascular: bounding S1 S2 tachycardic with a regular rhythm abdomen/GI: soft nondistended with bowel sounds extremities: adequate peripheral perfusion with no edema skin/integument: no edema or modeling neuro: no focal deficits but moderately confused psych: unable to assess Labs: reviewed Assessment and plan: acute on chronic respiratory failure. Patient is clearly declining and I had a significant conversation with family to expect 1 to 2 days Documented on Dragon speech to text. Efforts to correct speech recognition errors performed, but variation may exist Hospital Course Summary Disclaimer: The visit summary below is not to be considered part of the above Progress Note. Hospital Course: 12/26/17 Her previous history pulmonary embolus and has been on maintenance dose of Xarelto. It appears that she has developed a new embolus as well but it is small. She is done very poorly in the past with difficult reactions in the skin from subcutaneous heparinoids and is currently declining the use of them. She may be willing to tolerate IV heparin drip form if this becomes required. We will return to high-dose Xarelto at this point and make sure that this is taken with food for better absorption. Appears in fairly significant distress at rest. I think she is okay to go to the floor she will need of BiPAP initially. There may be some obstructive pneumonia secondary to the multiple lesions of the lung cancer. For this reason she is being placed on broad-spectrum antibiotics. Will also get albuterol breathing treatments and steroids for reduction of airway edema. DISPOSITION: Patient certainly meets inpatient criteria and will likely have a stay of 3 days or longer anticipated. She does have a good support system at home and will likely return there. 12/27/17 Overall she appears to be showing improvement. Overall she appears to be shown improvement. Continue antibiotics for the suspected obstructive pneumonia. Continue albuterol and steroids for respiratory support. Pulmonary embolus small and likely will be effectively treated with the increased dosage of Xarelto. Wean oxygen to a baseline 3 to 4 L 12/28/17 Patient does appear less acutely ill today. Continue antibiotics broad- spectrum. Patient remains on oxygen however she is on 3 L at base level at home. 12/29/17 Patient has been placed on DuoNeb treatment 4 times a day. Breakthrough medication of albuterol at at nebulized unit dose as well. Patient has been feeling moderately nervous and for this reason we're discontinuing steroids at this time Remain on antibiotics for likely post obstructive pneumonia. Continue on Xarelto has no alternative to heparinoids the patient's request. 12/30/17 Account for the developing fluid overload in this patient but we're starting around with 40 mg of Lasix this morning to be repeated again at midafternoon. Hopefully some diuresis will show improvement for her fluid overload. She had been put on a very small dose of Xanax overnight (0.25 mg Q6 hours) this does appear to be helping but it makes her acutely confused and family does show some appropriate concern for this side effect despite the explanation. I've ordered a chest x-ray and this does not appear to be significantly different. EKG is also reassuring that there is been no acute changes. I've explained to the patient that this is not a positive step but we will attempt give fluids off and hopefully improve her overall respiratory distress. I've also contacted pulmonology my appreciation to Dr. Rodriguez for coming to see her so promptly. He recommends HCAP antibiotics and transition off of Xarelto and place her on heparin drip without a loading dose Patient is in fairly significant respiratory distress and critically ill, showing only some mild improvement toward the end of the evening. 01/01/18 Patient did not improve significantly with Lasix. Although she believes that she is urinate a lot her weights of not decline much. Still she does sound less wet on auscultation today. We will continue the broad-spectrum age Antibiotics cefepime vancomycin and Levaquin for her at this time. She was unavailable therm throughout the majority of the day but I believe that she may benefit from BiPAP. We are placing her back on BiPAP again for the night. And based upon her respiratory improvement then we may make further decisions. I also restarted her on her Solu-Medrol because ceasing this did coincide with her decline and respiratory function. She is noted lead anxious due to the understanding of her impending demise from cancer as well as the physiologic respiratory distress. She becomes altered on Xanax so we are performing a trial of low doses of Geodon as well as Ativan as alternatives. We can make further modifications based upon a response to those Outcome remains poor and I am uncertain if she will even improve enough to leave the hospital. She does remain significantly hopeful they'll and motivated because of her many children and grandchildren to put up the best fight that she possibly can After 2 conversations each 20 minutes or longer with family, the decision to abstain from intubation and cardiopulmonary resuscitation has been made. She is comfortable with the idea of antiarrhythmic's and a chemical code 01/01/18 WBC has been climbing, though she remains on broad spectrum abx - vanco, cefepime, levaquin -- steroids were reintroduced on 12/31/17 corresponding to a resp decline -- ? steroids contributing to hallucinations though benefit may outweigh risk. Today ch day 6 of abx -- will dc levaquin given encephalopathy. Will dc hydrocodone, promethazine/codeine (allergy noted though this med was on her home med list). Schedule haldol 1 mg Q4h for encephalopathy. ABG yesterday was not showing significant resp acidosis/co2 retention. Weight continues to climb -- will repeat CXR today. cont heparin for PE Start monitoring blood glucose, add SSI and resume metformin if PO intake improves BP under reasonable control; losartan remains on hold.
--- NOTE | 2018-01-01 12:20 | XRay Report ---
Indication: dyspnea, pna PROCEDURE: XR chest 1V: Encounter: Initial Comparison: December 30, 2017 Findings: Overall no significant change in appearance of the chest with mostly consolidated left lung and elevated left hemidiaphragm. Right lung metastatic disease is again noted with multiple masses and nodules. No gross pneumothorax. Small pleural effusions. Cardiac silhouette is obscured. Mediastinal contours are abnormal but stable. Right IJ port catheter. Impression: Stable bilateral infiltrates and metastatic disease. .
[2018-01-01] MEDS: HALOPERIDOL 1 MG TABLET PO SCH ×3 (13:25→21:04)
[2018-01-01] MEDS: INSULIN ASPART 100unit/ml INJECTION SQ PRN ×2 (14:09→21:34)
--- NOTE | 2018-01-01 14:22 | Pulmonology Progress Note ---
Subjective Principal diagnosis: lung cancer Interval history: agitation and anxiety this AM, required IV Ativan. She is now resting comfortably non BIPAP 01/12, rate 12, Fio2 30%. Exam Vital signs: Temperature 97.7 F 01/01/18 11:34 Pulse Rate 114 H 01/01/18 11:34 Respiratory Rate 20 01/01/18 13:25 Blood Pressure 130/70 01/01/18 11:34 Pulse Oximetry 95 01/01/18 11:34 Inpatient Medications: Generic Name Dose Route Start Last Admin Trade Name Freq PRN Reason Stop Dose Admin Acetaminophen 325 - 650 mg 12/26/17 15:16 Tylenol PO Q5H PRN Discomfort Albuterol Sulfate 2.5 mg 12/30/17 08:51 12/31/17 20:48 Proventil Neb (0.083%) AEROSOL 2.5 mg Q2H PRN Administration Shortness of air Albuterol/Ipratropium 3 ml 12/29/17 19:00 01/01/18 11:16 Duoneb AEROSOL 3 ml RTQID VALERIE Administration Benzonatate 100 mg 12/26/17 17:14 Tessalon Perles PO TID PRN Cough Gabapentin 300 mg 12/26/17 21:00 01/01/18 09:00 Neurontin PO 300 mg TID VALERIE Administration Haloperidol 1 mg 01/01/18 12:00 01/01/18 13:25 Haldol PO Not Given Q4HR VALERIE Cefepime HCl 1 gm/ Sodium 100 mls @ 200 mls/hr 12/26/17 15:16 01/01/18 14:10 Chloride IV 200 mls/hr Q6HR VALERIE Administration Vancomycin HCl 1,250 mg/ 250 mls @ 200 mls/hr 12/31/17 13:00 01/01/18 08:34 Sodium Chloride IV Infused Q18H VALERIE Infusion Heparin Sodium (Porcine) 20,000 unit in 500 mls @ 24 mls/hr 01/01/18 08:16 09:09 Heparin Drip IV 24 mls/hr .[id number] VALERIE 24 mls/hr Administration Protocol Insulin Aspart 1 - 5 unit 01/01/18 12:18 01/01/18 14:09 Novolog SQ 3 unit SS PRN Administration Hyperglycemia Protocol Lorazepam 1 mg 01/01/18 11:28 01/01/18 11:31 Ativan Inj IVP 1 mg Q4H PRN Administration Agitation/Air hunger/Pain Megestrol Acetate 800 mg 12/27/17 09:00 01/01/18 09:01 Megace PO 800 mg DAILY VALERIE Administration Methylprednisolone Sodium Succinate 125 mg 12/31/17 09:45 01/01/18 09:01 Solu-Medrol IVP 125 mg Q12HR VALERIE Administration Ondansetron HCl 4 mg 12/26/17 15:16 Zofran IVP Q6H PRN Nausea &/or vomiting Senna/Docusate Sodium 1 tab 12/26/17 15:16 Senna Plus Tablet PO BID PRN Constipation Sodium Chloride 500 ml 12/27/17 09:20 12/31/17 08:48 Normal Saline IV 500 ml PRN PRN Administration Sodium Chloride 10 - 80 ml 12/28/17 00:37 01/01/18 14:11 Iv Flush IV 10 ml PRN PRN Administration Flushing Discontinued Medications Generic Name Dose Route Start Last Admin Trade Name Freq PRN Reason Stop Dose Admin Hydrocodone Bitart/Acetaminophen 1 tab 12/26/17 15:16 12/31/17 19:47 [place] 7.5/325 PO 1 tab Q6H PRN Administration Pain Hydrocodone Bitart/Acetaminophen 1 tab 12/26/17 17:14 [place] 7.5/325 PO QID PRN Pain Albuterol/Ipratropium 3 ml 12/26/17 11:12 12/26/17 11:30 Duoneb AEROSOL 12/26/17 11:13 3 ml O ONE Administration Alprazolam 0.25 mg 12/29/17 20:54 12/31/17 08:46 Xanax 0.25 Mg PO 0.25 mg Q6H PRN Administration Furosemide 40 mg 12/30/17 09:45 12/30/17 15:36 Lasix 40 Mg/4 Ml IVP 12/30/17 15:01 40 mg Q6HR VALERIE Administration Haloperidol Lactate 0.5 mg 12/31/17 15:45 01/01/18 10:37 Haldol IVP 0.5 mg Q4H PRN Administration Agitation/Air hunger/Pain Heparin Sodium (Beef Lung) 2,000 unit 12/31/17 15:00 12/31/17 16:41 Heparin Bolus IVP 12/31/17 15:01 2,000 unit O ONE Administration Heparin Sodium (Porcine) 1 each 12/31/17 09:26 Pharmacy Consult - Heparin 12/31/17 09:27 ONE TIME ONE Levofloxacin/Dextrose 750 mg in 150 mls @ 100 mls/hr 12/26/17 11:27 12/26/17 13:50 Levaquin 750 Mg Premix IV 12/26/17 12:56 Infused O ONE Infusion Levofloxacin/Dextrose 750 mg in 150 mls @ 100 mls/hr 12/27/17 13:00 12/31/17 15:40 Levaquin 750 Mg Premix IV Infused Q24H VALERIE Infusion Vancomycin HCl 1,250 mg/ 250 mls @ 200 mls/hr 12/26/17 16:00 12/28/17 05:02 Sodium Chloride IV Infused Q18H VALERIE Infusion Vancomycin HCl 1,000 mg/ 250 mls @ 200 mls/hr 12/28/17 17:00 12/31/17 08:47 Sodium Chloride IV Not Given Q12H VALERIE Heparin Sodium (Porcine) 20,000 unit in 500 mls @ 25 mls/hr 12/31/17 15:00 09:09 Heparin Drip IV Infused .Q20H VALERIE Titration Protocol Lorazepam 0.25 mg 12/31/17 15:48 01/01/18 06:48 Ativan Inj IVP 0.25 mg Q4H PRN Administration Agitation/Air hunger/Pain Methylprednisolone Sodium Succinate 125 mg 12/26/17 11:27 12/26/17 11:45 Solu-Medrol IVP 12/26/17 11:28 125 mg O ONE Administration Methylprednisolone Sodium Succinate 40 mg 12/27/17 01:00 Solu-Medrol IM 12/28/17 17:01 Q8HR VALERIE Methylprednisolone Sodium Succinate 40 mg 12/27/17 01:00 12/28/17 17:26 Solu-Medrol IVP 12/28/17 17:01 40 mg Q8HR VALERIE Administration Ondansetron HCl 4 mg 12/26/17 11:50 12/26/17 11:53 Zofran IVP 12/26/17 11:51 4 mg O ONE Administration Pharmacy Consult 1 each 12/30/17 23:50 Pharmacy Consult - Fall Risk 07/15/18 23:51 ONE TIME ONE Promethazine HCl/Codeine 5 ml 12/26/17 17:14 Phenergan + Codeine PO Q4H PRN Cough Rivaroxaban 15 mg 12/26/17 17:30 12/31/17 08:46 Xarelto PO 15 mg BIDWM VALERIE Administration Sodium Chloride 10 - 80 ml 12/26/17 11:12 12/26/17 11:46 Iv Flush IVF 10 ml PRN PRN Administration Flushing Sodium Chloride 500 ml 12/26/17 14:16 12/26/17 14:20 Normal Saline IV 500 ml PRN PRN Administration Vancomycin HCl 1 each 12/26/17 15:16 12/26/17 15:58 Pharmacy Consult - Vancomycin 12/26/17 15:17 Not Given O ONE - Constitutional moderate distress - Routine HEENT Exam Head: Present: normocephalic, atraumatic - Routine Respiratory Exam Present: accessory muscle use, wheezes, diminished air movement - Routine Cardiovascular Exam Present: RRR - Routine Abdominal Exam Present: soft. Absent: distended, guarding - Routine Extremities Exam Absent: cyanosis - Routine Skin Exam Absent: rash Results - Laboratory Findings Laboratory: Laboratory Results - last 48 hr 12/30/17 12/31/17 12/31/17 15:42 04:31 13:47 WBC RBC Hgb Hct MCV MCH MCHC RDW Std Deviation Plt Count MPV Immature Gran % (Auto) Neut % (Auto) Lymph % (Auto) Nobles % (Auto) Eos % (Auto) Baso % (Auto) Neut # (Auto) Lymph # (Auto) Nobles # (Auto) Eos # (Auto) Baso # (Auto) Abs Immat Gran (auto) Neutrophils % (Manual) Band Neutrophils % Lymphocytes % (Manual) Monocytes % (Manual) Eosinophils % (Manual) Neutrophils # (Manual) Band Neutrophils # Lymphocytes # (Manual) Monocytes # (Manual) Eosinophils # (Manual) Poikilocytosis Anisocytosis RBC Morph Comment APTT 44.4 H Sample Site Alveolar Air PO2 ABG pH ABG pCO2 ABG pO2 ABG HCO3 ABG Total CO2 ABG O2 Saturation ABG Base Excess A-a Gradient a/A Ratio O2 Delivery Method FiO2 Turbidity Sodium Potassium Chloride Carbon Dioxide Anion Gap BUN Creatinine GFR Calculation BUN/Creatinine Ratio Glucose Glucometer Calculated Osmolality Calcium Total Bilirubin Icterus Index AST ALT Alkaline Phosphatase Troponin I < 0.012 Total Protein Albumin Globulin Albumin/Globulin Ratio Specimen Hemolysis < 15 Vancomycin Trough 28.36 H* 12/31/17 12/31/17 12/31/17 13:48 13:48 13:48 WBC 24.4 H D RBC 3.53 L Hgb 10.1 L Hct 30.8 L MCV 87.3 MCH 28.6 MCHC 32.8 RDW Std Deviation 49.3 Plt Count 270 MPV 10.0 Immature Gran % (Auto) Not performed Neut % (Auto) Not performed Lymph % (Auto) Not performed Nobles % (Auto) Not performed Eos % (Auto) Not performed Baso % (Auto) Not performed Neut # (Auto) Not performed Lymph # (Auto) Not performed Nobles # (Auto) Not performed Eos # (Auto) Not performed Baso # (Auto) Not performed Abs Immat Gran (auto) Not performed Neutrophils % (Manual) 91.0 H Band Neutrophils % 2.0 Lymphocytes % (Manual) 1.0 L Monocytes % (Manual) 5.0 Eosinophils % (Manual) 1.0 Neutrophils # (Manual) 22.2 H Band Neutrophils # 0.5 Lymphocytes # (Manual) 0.2 L Monocytes # (Manual) 1.2 H Eosinophils # (Manual) 0.2 Poikilocytosis Anisocytosis RBC Morph Comment Normal APTT Sample Site Alveolar Air PO2 ABG pH ABG pCO2 ABG pO2 ABG HCO3 ABG Total CO2 ABG O2 Saturation ABG Base Excess A-a Gradient a/A Ratio O2 Delivery Method FiO2 Turbidity < 20 Sodium 140 Potassium 5.0 Chloride 107 Carbon Dioxide 24 Anion Gap 9 BUN 29.0 H Creatinine 1.0 GFR Calculation 55 BUN/Creatinine Ratio 29 H Glucose 236 H Glucometer Calculated Osmolality 283 H Calcium 8.6 Total Bilirubin 0.50 Icterus Index < 2 AST 36 ALT 15 Alkaline Phosphatase 144 H Troponin I 0.030 D Total Protein 6.4 Albumin 3.3 L Globulin 3.1 Albumin/Globulin Ratio 1.1 Specimen Hemolysis < 15 < 15 Vancomycin Trough 12/31/17 01/01/18 01/01/18 14:01 07:30 07:30 WBC RBC Hgb Hct MCV MCH MCHC RDW Std Deviation Plt Count 244 MPV Immature Gran % (Auto) Neut % (Auto) Lymph % (Auto) Nobles % (Auto) Eos % (Auto) Baso % (Auto) Neut # (Auto) Lymph # (Auto) Nobles # (Auto) Eos # (Auto) Baso # (Auto) Abs Immat Gran (auto) Neutrophils % (Manual) Band Neutrophils % Lymphocytes % (Manual) Monocytes % (Manual) Eosinophils % (Manual) Neutrophils # (Manual) Band Neutrophils # Lymphocytes # (Manual) Monocytes # (Manual) Eosinophils # (Manual) Poikilocytosis Anisocytosis RBC Morph Comment APTT 83.3 H Sample Site R brach Alveolar Air PO2 634.3 ABG pH 7.324 L ABG pCO2 46 H ABG pO2 110.1 H ABG HCO3 23.6 ABG Total CO2 25.0 ABG O2 Saturation 97.8 ABG Base Excess -2.5 L A-a Gradient 524.2 a/A Ratio 17.4 O2 Delivery Method Vapotherm FiO2 100 Turbidity Sodium Potassium Chloride Carbon Dioxide Anion Gap BUN Creatinine GFR Calculation BUN/Creatinine Ratio Glucose Glucometer Calculated Osmolality Calcium Total Bilirubin Icterus Index AST ALT Alkaline Phosphatase Troponin I Total Protein Albumin Globulin Albumin/Globulin Ratio Specimen Hemolysis Vancomycin Trough 01/01/18 01/01/18 01/01/18 07:30 07:30 13:47 WBC 19.1 H RBC 3.37 L Hgb 9.7 L Hct 29.6 L MCV 87.8 MCH 28.8 MCHC 32.8 RDW Std Deviation 49.9 Plt Count 241 MPV 11.0 Immature Gran % (Auto) Not performed Neut % (Auto) Not performed Lymph % (Auto) Not performed Nobles % (Auto) Not performed Eos % (Auto) Not performed Baso % (Auto) Not performed Neut # (Auto) Not performed Lymph # (Auto) Not performed Nobles # (Auto) Not performed Eos # (Auto) Not performed Baso # (Auto) Not performed Abs Immat Gran (auto) Not performed Neutrophils % (Manual) 92.0 H Band Neutrophils % 5.0 Lymphocytes % (Manual) Monocytes % (Manual) 3.0 Eosinophils % (Manual) Neutrophils # (Manual) 17.6 H Band Neutrophils # 1.0 Lymphocytes # (Manual) Monocytes # (Manual) 0.6 Eosinophils # (Manual) Poikilocytosis 1+ Anisocytosis 1+ RBC Morph Comment Abnormal APTT Sample Site Alveolar Air PO2 ABG pH ABG pCO2 ABG pO2 ABG HCO3 ABG Total CO2 ABG O2 Saturation ABG Base Excess A-a Gradient a/A Ratio O2 Delivery Method FiO2 Turbidity < 20 Sodium 141 Potassium 5.3 H Chloride 107 Carbon Dioxide 26 Anion Gap 8 BUN 38.0 H Creatinine 1.3 H D GFR Calculation 41 BUN/Creatinine Ratio 29 H Glucose 255 H Glucometer 286 Calculated Osmolality 289 H Calcium 8.5 Total Bilirubin Icterus Index < 2 AST ALT Alkaline Phosphatase Troponin I Total Protein Albumin Globulin Albumin/Globulin Ratio Specimen Hemolysis < 15.0 Vancomycin Trough - Diagnostic Findings Chest x-ray: report reviewed, image reviewed Assessment and Plan (1) Acute and chronic respiratory failure with hypoxia Status: Acute Assessment and plan: Due to lung cancer, pneumonia and PE. empirical treatments haven't helped yet Now on BIPAP ST 16/6 rate 12, FiO2 30% Prognosis is poor Current Visit: Yes (2) Obstructive pneumonia Status: Acute Assessment and plan: Continue empiric antibiotics (Cefepime and Vanco) for pneumonia. She is immune compromised and at risk for severe pneumonia. She is also at risk for drug resistant pathogens due to her medical history. Blood culture 1/2 positive for Strep viridans, unclear significance. Current Visit: Yes (3) Metastatic primary lung cancer Status: Acute Assessment and plan: history of MARILYN lobectomy with recurrence. She has been under treatment with chemoTx and now Tarceva and appears to be worsening in spite of this. Unfortunately her prognosis is very poor she is on empiric corticosteroids as well Current Visit: Yes - Time Spent With Patient Total time spent is greater than 50% in coordination of care (as documented) at patient's floor/unit and/or counseling patient: less than 15 minutes
[2018-01-02] MEDS: HALOPERIDOL 1 MG TABLET PO SCH ×6 (00:42→21:34)
[2018-01-02] MEDS: SALINE FLUSH 10ml SYRINGE IV PRN ×5 (01:50→21:39)
[2018-01-02] MEDS: CEFEPIME 1 GM in NS 100 ML IV SCH ×4 (02:22→21:39)
[2018-01-02] MEDS: HEPARIN DRIP 20,000 UNIT/500 ML BAG IV SCH (06:48)
[2018-01-02] MEDS: INSULIN ASPART 100unit/ml INJECTION SQ PRN (07:10)
[2018-01-02] MEDS: ALBUTEROL/IPRATROPIUM 2.5mg-0.5mg/3ml NEB AEROSOL SCH ×4 (07:42→19:31)
[2018-01-02] MEDS: MEGESTROL 800mg/20ml ORAL LIQUID PO SCH (09:24)
[2018-01-02] MEDS: GABAPENTIN 300 MG CAPSULE PO SCH ×3 (09:24→21:34)
[2018-01-02] MEDS: METHYLPREDNISOLONE SOD SUCC 125mg/2ml INJECTION IVP SCH ×2 (09:28→21:38)
--- NOTE | 2018-01-02 10:46 | Pharmacy Consult-Antibiotics ---
Pharmacy Consult-Vancomycin - Laboratory Information WBC 21.4 T/MM3 (4.5-11.0) H 01/02/18 04:27 BUN 45.0 MG/DL (7-17) H 01/02/18 04:27 Creatinine 1.5 mg/dL (0.7-1.2) H D 01/02/18 04:27 Vancomycin Trough 28.36 ug/mL (15-20) H* 12/31/17 04:31 - Consult Information Ms Bonner serum creatinine increased today, will order vancomycin trough at 1500 and re-assess. Thank you.
[2018-01-02] MEDS: MORPHINE SULFATE 2mg INJECTION IVP PRN ×4 (12:30→20:09)
--- NOTE | 2018-01-02 13:13 | Progress Note ---
- Date 01/02/18 Subjective: Patient on high flow oxygen when seen, oxygen saturations in the 80s briefly this morning. Multiple family members in the room after being previously advised that this was likely last day the family would have with the patient by Dr. García. Family report her condition has continued to deteriorate, minimal oral intake and increasing difficulty breathing. Patient mumbled occasional responses when I ask her questions but nothing could be understood except her request to sit up further. Nursing reports use of BiPAP overnight using Ativan to help her tolerate the mask, intermittently refusing BiPAP, persistent restlessness, but hallucinations not reported overnight. Family would like current care continued pending arrival of an aunt from [place] after which they may convert to comfort care. Objective Vital signs: Temperature 96.8 F 01/02/18 04:03 Pulse Rate 99 01/02/18 04:03 Respiratory Rate 28 H 01/02/18 11:34 Blood Pressure 148/87 H 01/02/18 04:03 Pulse Oximetry 100%-11L 01/02/18 11:34 I/O 2172/1 Chronically ill-appearing, cachectic female, mumbled speech Sclera anicteric, conjugate gaze Respirations labored, decreased airflow throughout, audible squeak/wheeze present without auscultation of lungs, coarse sounds at bases bilaterally L>R posteriorly Regular rhythm, tachycardic, S1-S2 Abdomen soft, mildly distended, nontender Multiple bruises on the forearm/legs Trace edema Neuro-moving upper extremities spontaneously Height/Weight/BMI: Height 1.5 m Weight 62.7 kg Body Mass Index 24.5 Results - Labs CBC & Chem 7: 01/02/18 04:27 01/02/18 04:27 Labs: PTT-48.8 Accu-Cheks [phone] Microbiology Results: Microbiology 12/26/17 11:45 Peripheral/Iv Start Gram Stain - Final 12/26/17 11:45 Peripheral/Iv Start Blood Culture - Final Streptococcus viridans group 12/26/17 11:39 Peripheral/Iv Start Blood Culture - Final No Growth After 5 Days - ABG Interpretation ABG results: 12/31/17 14:01 ABG pH 7.324 L ABG pCO2 46 H ABG pO2 110.1 H ABG HCO3 23.6 ABG Total CO2 25.0 ABG O2 Saturation 97.8 ABG Base Excess -2.5 L Assessment and Plan (1) Acute and chronic respiratory failure with hypoxia Current visit: Yes Status: Acute (2) Pulmonary embolism Current visit: Yes Status: Acute (3) Metastatic primary lung cancer Current visit: Yes Status: Acute Assessment and Plan: Assessment Acute/chronic hypoxic respiratory failure requiring BiPAP PE Obstructive PNA Metastatic NSCLCA, adenocarcinoma; failing therapy Immunocompromised d/t metastatic cancer Acute encephalopathy with reported visual hallucinations COPD Anxiety DM2 HTN Dyslipidemia Anemia, normocytic Psoriasis Leukocytosis Acute kidney injury Plan Progressive decline in status described in conjunction with reported progression of metastatic disease on CT chest on admission and new PE on admission CT despite anticoagulation with Xarelto. Chest x-ray yesterday reviewed by myself and essentially unchanged from films several days earlier with persistent L>R infiltrate and elevated left hemidiaphragm. Multiple masses in the right lung field evident. High flow oxygen necessary, BiPAP as tolerated. Family confirmed desire to continue current care pending arrival of one additional family member to allow an aunt to say goodbye. Continue BiPAP as tolerated, chemical code. Broad-spectrum antibiotics-dosages adjusted for deteriorating renal function. On heparin drip for PE; patient apparently declined use of Lovenox initially. Readdress alternate medication if patient survives over the next 24-48 hours. Poor oral intake, taking 1 or 2 bites with family assistance each meal. Low-dose morphine added for respiratory distress earlier today; continue scheduled Haldol for hallucinations previously described in conjunction with lorazepam prn. Blood glucoses elevated, requiring corrective insulin routinely. Metformin on hold due to poor oral intake and inability to tolerate oral medications. Prognosis grim, survival unlikely-have recommended DO NOT RESUSCITATE and that care focus on comfort only. Extended conversation with family members regarding prognosis and management. DVT Prophylaxis: Heparin drip Resuscitation Status: Limited Code - Time spent with patient Time with patient PN: other (40) Coordination of Care: >50% of visit spent providing counseling/coordination of care - Physician Narrative Narrative: Date: 01/02/18 Time: 1308 Hospital Course Summary Disclaimer: The visit summary below is not to be considered part of the above Progress Note. Hospital Course: 12/26/17 Her previous history pulmonary embolus and has been on maintenance dose of Xarelto. It appears that she has developed a new embolus as well but it is small. She is done very poorly in the past with difficult reactions in the skin from subcutaneous heparinoids and is currently declining the use of them. She may be willing to tolerate IV heparin drip form if this becomes required. We will return to high-dose Xarelto at this point and make sure that this is taken with food for better absorption. Appears in fairly significant distress at rest. I think she is okay to go to the floor she will need of BiPAP initially. There may be some obstructive pneumonia secondary to the multiple lesions of the lung cancer. For this reason she is being placed on broad-spectrum antibiotics. Will also get albuterol breathing treatments and steroids for reduction of airway edema. DISPOSITION: Patient certainly meets inpatient criteria and will likely have a stay of 3 days or longer anticipated. She does have a good support system at home and will likely return there. 12/27/17 Overall she appears to be showing improvement. Overall she appears to be shown improvement. Continue antibiotics for the suspected obstructive pneumonia. Continue albuterol and steroids for respiratory support. Pulmonary embolus small and likely will be effectively treated with the increased dosage of Xarelto. Wean oxygen to a baseline 3 to 4 L 12/28/17 Patient does appear less acutely ill today. Continue antibiotics broad- spectrum. Patient remains on oxygen however she is on 3 L at base level at home. 12/29/17 Patient has been placed on DuoNeb treatment 4 times a day. Breakthrough medication of albuterol at at nebulized unit dose as well. Patient has been feeling moderately nervous and for this reason we're discontinuing steroids at this time Remain on antibiotics for likely post obstructive pneumonia. Continue on Xarelto has no alternative to heparinoids the patient's request. 12/30/17 Account for the developing fluid overload in this patient but we're starting around with 40 mg of Lasix this morning to be repeated again at midafternoon. Hopefully some diuresis will show improvement for her fluid overload. She had been put on a very small dose of Xanax overnight (0.25 mg Q6 hours) this does appear to be helping but it makes her acutely confused and family does show some appropriate concern for this side effect despite the explanation. I've ordered a chest x-ray and this does not appear to be significantly different. EKG is also reassuring that there is been no acute changes. I've explained to the patient that this is not a positive step but we will attempt give fluids off and hopefully improve her overall respiratory distress. I've also contacted pulmonology my appreciation to Dr. Rodriguez for coming to see her so promptly. He recommends HCAP antibiotics and transition off of Xarelto and place her on heparin drip without a loading dose Patient is in fairly significant respiratory distress and critically ill, showing only some mild improvement toward the end of the evening. 01/01/18 Patient did not improve significantly with Lasix. Although she believes that she is urinate a lot her weights of not decline much. Still she does sound less wet on auscultation today. We will continue the broad-spectrum age Antibiotics cefepime vancomycin and Levaquin for her at this time. She was unavailable therm throughout the majority of the day but I believe that she may benefit from BiPAP. We are placing her back on BiPAP again for the night. And based upon her respiratory improvement then we may make further decisions. I also restarted her on her Solu-Medrol because ceasing this did coincide with her decline and respiratory function. She is noted lead anxious due to the understanding of her impending demise from cancer as well as the physiologic respiratory distress. She becomes altered on Xanax so we are performing a trial of low doses of Geodon as well as Ativan as alternatives. We can make further modifications based upon a response to those Outcome remains poor and I am uncertain if she will even improve enough to leave the hospital. She does remain significantly hopeful they'll and motivated because of her many children and grandchildren to put up the best fight that she possibly can After 2 conversations each 20 minutes or longer with family, the decision to abstain from intubation and cardiopulmonary resuscitation has been made. She is comfortable with the idea of antiarrhythmic's and a chemical code 01/01/18 WBC has been climbing, though she remains on broad spectrum abx - vanco, cefepime, levaquin -- steroids were reintroduced on 12/31/17 corresponding to a resp decline -- ? steroids contributing to hallucinations though benefit may outweigh risk. Today ch day 6 of abx -- will dc levaquin given encephalopathy. Will dc hydrocodone, promethazine/codeine (allergy noted though this med was on her home med list). Schedule haldol 1 mg Q4h for encephalopathy. ABG yesterday was not showing significant resp acidosis/co2 retention. Weight continues to climb -- will repeat CXR today. cont heparin for PE Start monitoring blood glucose, add SSI and resume metformin if PO intake improves BP under reasonable control; losartan remains on hold. 01/02/18 Persistent respiratory distress, renal function deteriorating. Antibiotics adjusted for renal function per pharmacy. Extended family gathering in anticipation of patient's . Family requests that current care be continued utilizing BiPAP if patient will permit and chemical code pending arrival of additional family member. Morphine added for air hunger/respiratory distress.
[2018-01-02] MEDS ORDERED: HEPARIN 1,000unit/ml INJECTION 10ml IVP ONE (15:30)
[2018-01-02] MEDS ORDERED: HEPARIN DRIP 20,000 UNIT/500 ML BAG IV SCH ×2 (15:30→22:53)
--- NOTE | 2018-01-02 15:40 | Pharmacy Consult ---
Pharmacy Consult-Heparin - Laboratory Information Heparin Plt Count 287 T/MM3 (130-400) 01/02/18 04:27 APTT 48.8 SEC (24-36) H 01/02/18 04:27 - Consult Information HEPARIN CONSULT (Recurring): PTT = 48.8 Sec. Platelet count = 287 T/mm3. Will increase the Heparin Drip to 1080 units/hr (27 ml/hr) along with a small heparin bolus of 2,100 units. Therapeutic Range is between 55-83. Will recheck PTT at 22:00 adjust regimen as needed. Thank you. Estefania Butcher, PharmD
--- NOTE | 2018-01-02 16:52 | Pharmacy Consult-Antibiotics ---
Pharmacy Consult-Vancomycin - Laboratory Information WBC 21.4 T/MM3 (4.5-11.0) H 01/02/18 04:27 BUN 45.0 MG/DL (7-17) H 01/02/18 04:27 Creatinine 1.5 mg/dL (0.7-1.2) H D 01/02/18 04:27 Vancomycin Trough 28.36 ug/mL (15-20) H* 12/31/17 04:31 - Consult Information Vancomycin trough elevated at 38.56 mcg/ml. Will skip next doses and restart at vancomycin 750mg IV q24h at 1800 tomorrow. Thank you.
[2018-01-03] MEDS: MORPHINE SULFATE 2mg INJECTION IVP PRN ×7 (00:16→23:46)
[2018-01-03] MEDS: HALOPERIDOL 1 MG TABLET PO SCH ×4 (01:22→11:48)
[2018-01-03] MEDS: SALINE FLUSH 10ml SYRINGE IV PRN ×2 (03:05→11:46)
[2018-01-03] MEDS: CEFEPIME 1 GM in NS 100 ML IV SCH ×4 (03:05→21:24)
[2018-01-03] MEDS ORDERED: HEPARIN DRIP 20,000 UNIT/500 ML BAG IV SCH (07:32)
--- NOTE | 2018-01-03 07:36 | Pharmacy Consult ---
Pharmacy Consult-Heparin - Laboratory Information Heparin Plt Count 287 T/MM3 (130-400) 01/02/18 04:27 APTT 88.4 SEC (24-36) H 01/03/18 06:38 - Consult Information HEPARIN CONSULT (Recurring): PTT = 99.4 at 2200 on 01/02 - reduced rate to 25mL per hour. PTT = 88.4 at 0638 on 01/03 - reduced rate to 23mL per hour. Platelet count = Not on chart. I ordered for 01/04/18. Will adjust Heparin Drip to 920 units/hr (23 ml/hr). Will recheck PTT at 1400 today and adjust regimen as needed. Thank you.
[2018-01-03] MEDS: MEGESTROL 800mg/20ml ORAL LIQUID PO SCH (10:01)
[2018-01-03] MEDS: GABAPENTIN 300 MG CAPSULE PO SCH ×2 (10:01→14:31)
[2018-01-03] MEDS: METHYLPREDNISOLONE SOD SUCC 125mg/2ml INJECTION IVP SCH ×2 (10:27→21:20)
[2018-01-03] MEDS: ENOXAPARIN 100 MG/ML INJECTION SQ SCH (11:47)
--- NOTE | 2018-01-03 21:42 | Progress Note ---
- Date 01/03/18 Subjective: Mrs. Bonner was seen with her daughter at bedside this morning. Patient was nonverbal and nursing/daughter report variable degree of restlessness typically controlled with morphine with occasional lorazepam doses. Urine output is poor but Mrs. Bonner wanted to get up to the commode earlier today. She has not had a bowel movement in a number of days but has also had virtually no oral intake. Family report breathing has seemed less labored since morphine was added and that she rested well overnight. Nursing expressed concern that peripheral IV is going bad and that if heparin will be continued to accesses are necessary. Family agreeable to conversion to Lovenox. Objective Vital signs: Temperature 96.6 F L 01/03/18 19:00 Pulse Rate 105 H 01/03/18 19:00 Respiratory Rate 10 01/03/18 19:00 Blood Pressure 149/65 H 01/03/18 19:00 Pulse Oximetry 99 -11 L HFNC 01/03/18 20:38 Drowsy/sleeping, occasional spontaneous movement right upper extremity Sclera anicteric, conjunctiva clear Respirations nonlabored, diminished airflow, breath sounds coarse especially in the right lower lobe, no audible wheezing present today Regular rhythm, S1-S2 Abdomen soft, nontender, diminished bowel sounds Extremities without edema Height/Weight/BMI: Height 1.5 m Weight 62.7 kg Body Mass Index 24.5 Results - Labs CBC & Chem 7: 01/02/18 04:27 01/03/18 06:38 Labs: PTT 88.4 Microbiology Results: Microbiology 12/26/17 11:45 Peripheral/Iv Start Gram Stain - Final 12/26/17 11:45 Peripheral/Iv Start Blood Culture - Final Streptococcus viridans group 12/26/17 11:39 Peripheral/Iv Start Blood Culture - Final No Growth After 5 Days Assessment and Plan (1) Acute and chronic respiratory failure with hypoxia Current visit: Yes Status: Acute (2) Pulmonary embolism Current visit: Yes Status: Acute (3) Metastatic primary lung cancer Current visit: Yes Status: Acute Assessment and Plan: Assessment Acute/chronic hypoxic respiratory failure requiring BiPAP PE Obstructive PNA Metastatic NSCLCA, adenocarcinoma; failing therapy Immunocompromised d/t metastatic cancer Acute encephalopathy with reported visual hallucinations COPD Anxiety DM2 HTN Dyslipidemia Anemia, normocytic Psoriasis Leukocytosis Acute kidney injury Plan Continued decline in status. Family edging toward comfort care and has requested that Accu-Cheks be discontinued overnight in addition to prior request that BiPAP and scheduled breathing treatments be discontinued. Family at bedside at all times in essentially a watch. and son converted to DO NOT RESUSCITATE status yesterday evening. At present they would like antibiotics and anticoagulation continued but other oral medications discontinued due to patient's somnolence. Continue morphine, lorazepam, and Haldol as needed for respiratory distress, anxiety, and hallucinations. Has been on high-dose Solu-Medrol since 12/26-dose decreased to 62.5 mg every 12 today. Heparin drip discontinued, converted to Lovenox 1.5 mg/kg subcutaneous daily Nursing report slowing of respiratory rate late this afternoon and evening. Dr. Navarro and Dr. Rodriguez notified of deterioration and anticipated . Sister arrives this evening; we'll readdress option of full comfort care and hospice tomorrow if patient survives the night. - Physician Narrative Narrative: Date: 01/03/18 Time: 2138 Hospital Course Summary Disclaimer: The visit summary below is not to be considered part of the above Progress Note. Hospital Course: 12/26/17 Her previous history pulmonary embolus and has been on maintenance dose of Xarelto. It appears that she has developed a new embolus as well but it is small. She is done very poorly in the past with difficult reactions in the skin from subcutaneous heparinoids and is currently declining the use of them. She may be willing to tolerate IV heparin drip form if this becomes required. We will return to high-dose Xarelto at this point and make sure that this is taken with food for better absorption. Appears in fairly significant distress at rest. I think she is okay to go to the floor she will need of BiPAP initially. There may be some obstructive pneumonia secondary to the multiple lesions of the lung cancer. For this reason she is being placed on broad-spectrum antibiotics. Will also get albuterol breathing treatments and steroids for reduction of airway edema. DISPOSITION: Patient certainly meets inpatient criteria and will likely have a stay of 3 days or longer anticipated. She does have a good support system at home and will likely return there. 12/27/17 Overall she appears to be showing improvement. Overall she appears to be shown improvement. Continue antibiotics for the suspected obstructive pneumonia. Continue albuterol and steroids for respiratory support. Pulmonary embolus small and likely will be effectively treated with the increased dosage of Xarelto. Wean oxygen to a baseline 3 to 4 L 12/28/17 Patient does appear less acutely ill today. Continue antibiotics broad- spectrum. Patient remains on oxygen however she is on 3 L at base level at home. 12/29/17 Patient has been placed on DuoNeb treatment 4 times a day. Breakthrough medication of albuterol at at nebulized unit dose as well. Patient has been feeling moderately nervous and for this reason we're discontinuing steroids at this time Remain on antibiotics for likely post obstructive pneumonia. Continue on Xarelto has no alternative to heparinoids the patient's request. 12/30/17 Account for the developing fluid overload in this patient but we're starting around with 40 mg of Lasix this morning to be repeated again at midafternoon. Hopefully some diuresis will show improvement for her fluid overload. She had been put on a very small dose of Xanax overnight (0.25 mg Q6 hours) this does appear to be helping but it makes her acutely confused and family does show some appropriate concern for this side effect despite the explanation. I've ordered a chest x-ray and this does not appear to be significantly different. EKG is also reassuring that there is been no acute changes. I've explained to the patient that this is not a positive step but we will attempt give fluids off and hopefully improve her overall respiratory distress. I've also contacted pulmonology my appreciation to Dr. Rodriguez for coming to see her so promptly. He recommends HCAP antibiotics and transition off of Xarelto and place her on heparin drip without a loading dose Patient is in fairly significant respiratory distress and critically ill, showing only some mild improvement toward the end of the evening. 01/01/18 Patient did not improve significantly with Lasix. Although she believes that she is urinate a lot her weights of not decline much. Still she does sound less wet on auscultation today. We will continue the broad-spectrum age Antibiotics cefepime vancomycin and Levaquin for her at this time. She was unavailable therm throughout the majority of the day but I believe that she may benefit from BiPAP. We are placing her back on BiPAP again for the night. And based upon her respiratory improvement then we may make further decisions. I also restarted her on her Solu-Medrol because ceasing this did coincide with her decline and respiratory function. She is noted lead anxious due to the understanding of her impending demise from cancer as well as the physiologic respiratory distress. She becomes altered on Xanax so we are performing a trial of low doses of Geodon as well as Ativan as alternatives. We can make further modifications based upon a response to those Outcome remains poor and I am uncertain if she will even improve enough to leave the hospital. She does remain significantly hopeful they'll and motivated because of her many children and grandchildren to put up the best fight that she possibly can After 2 conversations each 20 minutes or longer with family, the decision to abstain from intubation and cardiopulmonary resuscitation has been made. She is comfortable with the idea of antiarrhythmic's and a chemical code 01/01/18 WBC has been climbing, though she remains on broad spectrum abx - vanco, cefepime, levaquin -- steroids were reintroduced on 12/31/17 corresponding to a resp decline -- ? steroids contributing to hallucinations though benefit may outweigh risk. Today ch day 6 of abx -- will dc levaquin given encephalopathy. Will dc hydrocodone, promethazine/codeine (allergy noted though this med was on her home med list). Schedule haldol 1 mg Q4h for encephalopathy. ABG yesterday was not showing significant resp acidosis/co2 retention. Weight continues to climb -- will repeat CXR today. cont heparin for PE Start monitoring blood glucose, add SSI and resume metformin if PO intake improves BP under reasonable control; losartan remains on hold. 01/02/18 Persistent respiratory distress, renal function deteriorating. Antibiotics adjusted for renal function per pharmacy. Extended family gathering in anticipation of patient's . Family requests that current care be continued utilizing BiPAP if patient will permit and chemical code pending arrival of additional family member. Morphine added for air hunger/respiratory distress. 01/03/18 Continued decline in status. Family edging toward comfort care and has requested that Accu-Cheks be discontinued overnight in addition to prior request that BiPAP and scheduled breathing treatments be discontinued. Family at bedside at all times in essentially a watch. and son converted to DO NOT RESUSCITATE status yesterday evening. At present they would like antibiotics and anticoagulation continued but other oral medications discontinued due to patient's somnolence. Continue morphine, lorazepam, and Haldol as needed for respiratory distress, anxiety, and hallucinations. Has been on high-dose Solu-Medrol since 12/26-dose decreased to 62.5 mg every 12 today. Heparin drip discontinued, converted to Lovenox 1.5 mg/kg subcutaneous daily Nursing report slowing of respiratory rate late this afternoon and evening. Dr. Navarro and Dr. Rodriguez notified of deterioration and anticipated . Sister arrives this evening; we'll readdress option of full comfort care and hospice tomorrow if patient survives the night.
[2018-01-04] MEDS: CEFEPIME 1 GM in NS 100 ML IV SCH ×2 (03:28→08:41)
[2018-01-04] MEDS: MORPHINE SULFATE 2mg INJECTION IVP PRN ×6 (04:57→22:26)
[2018-01-04] MEDS: ENOXAPARIN 100 MG/ML INJECTION SQ SCH (08:57)
[2018-01-04] MEDS ORDERED: METHYLPREDNISOLONE SOD SUCC 125mg/2ml INJECTION IVP SCH (09:00)
--- NOTE | 2018-01-04 12:53 | Pharmacy Consult- Renal Dosing ---
Pharamcy Consul-Renal Dosing - Laboratory Information 12/26/17 12/28/17 12/28/17 11:31 06:14 12:17 BUN 19.0 H 27.0 H Creatinine 0.8 0.9 0.9 12/29/17 12/31/17 01/01/18 03:56 13:48 07:30 BUN 27.0 H 29.0 H 38.0 H Creatinine 0.9 1.0 1.3 H D 01/02/18 01/03/18 01/04/18 04:27 06:38 04:47 BUN 45.0 H Creatinine 1.5 H D 1.7 H D 2.3 H D - Consult Information RENAL DOSING: CEFEPIME Today's SCr = 2.3 mg/dl. Calculated CrCl = 23.73 ml/min. Will decrease Cefepime dose from 1 gram IV q6hrs to 1 gram IV q12hrs Thank you. Estefania Butcher, PharmD
--- NOTE | 2018-01-04 12:56 | Pharmacy Consult-Antibiotics ---
Pharmacy Consult-Vancomycin - Laboratory Information WBC 21.4 T/MM3 (4.5-11.0) H 01/02/18 04:27 BUN 45.0 MG/DL (7-17) H 01/02/18 04:27 Creatinine 2.3 mg/dL (0.7-1.2) H D 01/04/18 04:47 Vancomycin Trough 28.36 ug/mL (15-20) H* 12/31/17 04:31 - Consult Information Vancomycin Consult; Day 10 The creatinine clearance has goone from 36 mL/min to 22 mL/min so I have changed the Vancomycin from 750 mg iv q24h to 750 mg iv every 36 hours. Thanks , Maynor Sam, Pharmacist.
--- NOTE | 2018-01-04 15:04 | Progress Note ---
- Date 01/04/18 Subjective: Mrs. Bonner was resting quietly when seen this morning. She was unresponsive to voice or exam and family indicated she did not respond when her sister visited last night. She's continued to require frequent doses of Ativan and morphine for air hunger per nursing report with medications being administered approximately every 4 hours. Family meeting with hospice later today but at this point wishes to continue antibiotics and Lovenox for recent PE. Nursing reports patient incontinent of urine once overnight and increasing irregular/ shallow respirations Objective Vital signs: Temperature 95.6 F L 01/04/18 08:00 Pulse Rate 98 01/04/18 08:00 Respiratory Rate 7 L 01/03/18 22:03 Blood Pressure 111/59 01/04/18 08:00 Pulse Oximetry 100 -11 L HFNC 01/04/18 08:00 Unresponsive female, appears comfortable Respirations nonlabored, diminished airflow, anterior breath sounds clear Regular rhythm, low-grade tachycardia Abdomen soft, no bowel sounds appreciated Trace edema 4 extremities Rhythm: Sinus Tachycardia Height/Weight/BMI: Height 1.5 m Weight 64.2 kg Body Mass Index 24.5 Results - Labs CBC & Chem 7: 01/02/18 04:27 01/04/18 04:47 Microbiology Results: Microbiology 12/26/17 11:45 Peripheral/Iv Start Gram Stain - Final 12/26/17 11:45 Peripheral/Iv Start Blood Culture - Final Streptococcus viridans group 12/26/17 11:39 Peripheral/Iv Start Blood Culture - Final No Growth After 5 Days Assessment and Plan (1) Acute and chronic respiratory failure with hypoxia Current visit: Yes Status: Acute (2) Pulmonary embolism Current visit: Yes Status: Acute (3) Metastatic primary lung cancer Current visit: Yes Status: Acute Assessment and Plan: Assessment Acute/chronic hypoxic respiratory failure requiring BiPAP PE Obstructive PNA Metastatic NSCLCA, adenocarcinoma; failing therapy Immunocompromised d/t metastatic cancer Acute encephalopathy with reported visual hallucinations COPD Anxiety DM2 HTN Dyslipidemia Anemia, normocytic Psoriasis Leukocytosis Acute kidney injury Plan Continued decline in status. Renal function continues to decline. No oral intake 48 hours and patient unresponsive for approximately 24 hours. Antibiotics adjusted for worsening renal function. Day 10 cefepime and vancomycin; Levaquin discontinued 12/31 after 6 days due to worsening confusion/ hallucinations. Hospice discussed with the patient's daughter who was present this morning; family is meeting with [facility] later this afternoon. The son who makes medical decisions was not present but Emilie will relay our conversation of the morning to him when he arrives or ask nursing to contact me when he arrives. I strongly recommended conversion to comfort care and discontinuation of antibiotics and supportive hospice care as family has repetitively asked that care focus on comfort for the past 2 days. Discussed with nursing. anticipated in near future. DVT Prophylaxis: Lovenox (therapeutic) Resuscitation Status: Do Not Resuscitate - Physician Narrative Narrative: Date: 01/04/18 Time: 1459 Hospital Course Summary Disclaimer: The visit summary below is not to be considered part of the above Progress Note. Hospital Course: 12/26/17 Her previous history pulmonary embolus and has been on maintenance dose of Xarelto. It appears that she has developed a new embolus as well but it is small. She is done very poorly in the past with difficult reactions in the skin from subcutaneous heparinoids and is currently declining the use of them. She may be willing to tolerate IV heparin drip form if this becomes required. We will return to high-dose Xarelto at this point and make sure that this is taken with food for better absorption. Appears in fairly significant distress at rest. I think she is okay to go to the floor she will need of BiPAP initially. There may be some obstructive pneumonia secondary to the multiple lesions of the lung cancer. For this reason she is being placed on broad-spectrum antibiotics. Will also get albuterol breathing treatments and steroids for reduction of airway edema. DISPOSITION: Patient certainly meets inpatient criteria and will likely have a stay of 3 days or longer anticipated. She does have a good support system at home and will likely return there. 12/27/17 Overall she appears to be showing improvement. Overall she appears to be shown improvement. Continue antibiotics for the suspected obstructive pneumonia. Continue albuterol and steroids for respiratory support. Pulmonary embolus small and likely will be effectively treated with the increased dosage of Xarelto. Wean oxygen to a baseline 3 to 4 L 12/28/17 Patient does appear less acutely ill today. Continue antibiotics broad- spectrum. Patient remains on oxygen however she is on 3 L at base level at home. 12/29/17 Patient has been placed on DuoNeb treatment 4 times a day. Breakthrough medication of albuterol at at nebulized unit dose as well. Patient has been feeling moderately nervous and for this reason we're discontinuing steroids at this time Remain on antibiotics for likely post obstructive pneumonia. Continue on Xarelto has no alternative to heparinoids the patient's request. 12/30/17 Account for the developing fluid overload in this patient but we're starting around with 40 mg of Lasix this morning to be repeated again at midafternoon. Hopefully some diuresis will show improvement for her fluid overload. She had been put on a very small dose of Xanax overnight (0.25 mg Q6 hours) this does appear to be helping but it makes her acutely confused and family does show some appropriate concern for this side effect despite the explanation. I've ordered a chest x-ray and this does not appear to be significantly different. EKG is also reassuring that there is been no acute changes. I've explained to the patient that this is not a positive step but we will attempt give fluids off and hopefully improve her overall respiratory distress. I've also contacted pulmonology my appreciation to Dr. Rodriguez for coming to see her so promptly. He recommends HCAP antibiotics and transition off of Xarelto and place her on heparin drip without a loading dose Patient is in fairly significant respiratory distress and critically ill, showing only some mild improvement toward the end of the evening. 01/01/18 Patient did not improve significantly with Lasix. Although she believes that she is urinate a lot her weights of not decline much. Still she does sound less wet on auscultation today. We will continue the broad-spectrum age Antibiotics cefepime vancomycin and Levaquin for her at this time. She was unavailable therm throughout the majority of the day but I believe that she may benefit from BiPAP. We are placing her back on BiPAP again for the night. And based upon her respiratory improvement then we may make further decisions. I also restarted her on her Solu-Medrol because ceasing this did coincide with her decline and respiratory function. She is noted lead anxious due to the understanding of her impending demise from cancer as well as the physiologic respiratory distress. She becomes altered on Xanax so we are performing a trial of low doses of Geodon as well as Ativan as alternatives. We can make further modifications based upon a response to those Outcome remains poor and I am uncertain if she will even improve enough to leave the hospital. She does remain significantly hopeful they'll and motivated because of her many children and grandchildren to put up the best fight that she possibly can After 2 conversations each 20 minutes or longer with family, the decision to abstain from intubation and cardiopulmonary resuscitation has been made. She is comfortable with the idea of antiarrhythmic's and a chemical code 01/01/18 WBC has been climbing, though she remains on broad spectrum abx - vanco, cefepime, levaquin -- steroids were reintroduced on 12/31/17 corresponding to a resp decline -- ? steroids contributing to hallucinations though benefit may outweigh risk. Today ch day 6 of abx -- will dc levaquin given encephalopathy. Will dc hydrocodone, promethazine/codeine (allergy noted though this med was on her home med list). Schedule haldol 1 mg Q4h for encephalopathy. ABG yesterday was not showing significant resp acidosis/co2 retention. Weight continues to climb -- will repeat CXR today. cont heparin for PE Start monitoring blood glucose, add SSI and resume metformin if PO intake improves BP under reasonable control; losartan remains on hold. 01/02/18 Persistent respiratory distress, renal function deteriorating. Antibiotics adjusted for renal function per pharmacy. Extended family gathering in anticipation of patient's . Family requests that current care be continued utilizing BiPAP if patient will permit and chemical code pending arrival of additional family member. Morphine added for air hunger/respiratory distress. 01/03/18 Continued decline in status. Family edging toward comfort care and has requested that Accu-Cheks be discontinued overnight in addition to prior request that BiPAP and scheduled breathing treatments be discontinued. Family at bedside at all times in essentially a watch. and son converted to DO NOT RESUSCITATE status yesterday evening. At present they would like antibiotics and anticoagulation continued but other oral medications discontinued due to patient's somnolence. Continue morphine, lorazepam, and Haldol as needed for respiratory distress, anxiety, and hallucinations. Has been on high-dose Solu-Medrol since 12/26-dose decreased to 62.5 mg every 12 today. Heparin drip discontinued, converted to Lovenox 1.5 mg/kg subcutaneous daily Nursing report slowing of respiratory rate late this afternoon and evening. Dr. Navarro and Dr. Rodriguez notified of deterioration and anticipated . Sister arrives this evening; we'll readdress option of full comfort care and hospice tomorrow if patient survives the night. 01/04/18 Worsening renal function, patient unresponsive; no oral intake 48 hours. Family meeting with hospice this afternoon but at present has requested that antibiotics and therapeutic Lovenox be continued. Day 10 cefepime and vancomycin.
[2018-01-04] MEDS ORDERED: ACETAMINOPHEN 650 MG SUPPOSITORY PR PRN (18:57)
[2018-01-04] MEDS ORDERED: BISACODYL 10 MG SUPPOSITORY RECTALLY PRN (18:57)
[2018-01-04] MEDS: MORPHINE SULFATE 2mg INJECTION IVP SCH ×3 (19:41→23:09)
[2018-01-04] MEDS: SALINE FLUSH 10ml SYRINGE IV PRN ×4 (19:41→23:09)
[2018-01-04] MEDS ORDERED: CEFEPIME 1 GM in NS 100 ML IV SCH (21:00)
[2018-01-04 23:49] VITALS: BP 88/53; PULSE 102; TEMP 96.4; O2SAT 95
[2018-01-05] MEDS: SALINE FLUSH 10ml SYRINGE IV PRN ×8 (00:03→06:15)
[2018-01-05] MEDS: MORPHINE SULFATE 2mg INJECTION IVP SCH ×3 (00:58→05:07)
[2018-01-05] MEDS: MORPHINE SULFATE 2mg INJECTION IVP PRN ×3 (02:08→06:15)
[2018-01-05] MEDS ORDERED: ATROPINE 1% DROPS PO/SL PRN (02:42)
[2018-01-05 05:08] VITALS: RESP 8
--- NOTE | 2018-01-05 22:54 | Discharge Summary ---
Discharge Information Date of admission: 12/26/17 14:56 Anticipated date of discharge: 01/05/18 Attending Physician: Rossy Estevez MD Primary care physician: Jarrett Navarro MD Consults: 01/04/18 19:00 Hospice Consult [CONS] Routine Comment: Kar Donovan--signed on, inpt hospice - Discharge Diagnosis (1) Acute and chronic respiratory failure with hypoxia Status: Acute (2) Pulmonary embolism Status: Acute (3) Metastatic primary lung cancer Status: Acute Acute/chronic hypoxic respiratory failure PE Obstructive PNA Metastatic NSCLCA, adenocarcinoma; failing therapy Immunocompromised d/t metastatic cancer Acute encephalopathy with reported visual hallucinations COPD Anxiety DM2 HTN Dyslipidemia Anemia, normocytic Psoriasis Leukocytosis Acute kidney injury - Laboratory Labs: 01/02/18 04:27 01/04/18 04:47 - Microbiology Microbiology 12/26/17 11:45 Peripheral/Iv Start Gram Stain - Final 12/26/17 11:45 Peripheral/Iv Start Blood Culture - Final Streptococcus viridans group 12/26/17 11:39 Peripheral/Iv Start Blood Culture - Final No Growth After 5 Days - Radiology Radiology: CTA lungs, PE protocol on 12/26/17 demonstrated: 1. Small area of right lower lobe PE. 2. Worsening pulmonary metastatic disease with minimal remaining aerated left lung parenchyma. ----- Chest x-ray on 12/26/17 demonstrated complete consolidation of the left lung with severe atelectasis-minimal aeration in the left upper lobe. Large right upper lobe and right hilar masses were demonstrated. Chest x-rays on 12/30 and 01/01 were essentially unchanged. History of Present Illness HPI: 67-year-old woman with known metastatic lung cancer developing increasing shortness of breath over several days with malaise. She did state however she felt a sudden decline yesterday in respiratory function. Minimally productive cough but for the chronic chemistry intern blood tinged sputum that she has. She feels altogether unwell and has been unable to get up and I even manage her own toileting at this point despite 3 to 4 L of oxygen. Emergency room in respiratory distress at 8 L to hold her saturation to 90% Objective Vital signs: Temperature 96.4 F L 01/04/18 23:48 Pulse Rate 102 H 01/04/18 23:48 Respiratory Rate 8 L 01/05/18 06:45 Blood Pressure 88/53 01/04/18 23:48 Pulse Oximetry 95 01/04/18 23:48 Pulseless/apneic/no heart tones at 0733 AM Height/Weight/BMI: Height 1.5 m Weight 64.2 kg Body Mass Index 24.5 Hospital Course This is a general summary of the patient's hospital course. For more details refer to the complete medical record. Hospital course: 12/26/17 Her previous history pulmonary embolus and has been on maintenance dose of Xarelto. It appears that she has developed a new embolus as well but it is small. She is done very poorly in the past with difficult reactions in the skin from subcutaneous heparinoids and is currently declining the use of them. She may be willing to tolerate IV heparin drip form if this becomes required. We will return to high-dose Xarelto at this point and make sure that this is taken with food for better absorption. Appears in fairly significant distress at rest. She will need BiPAP initially. There may be some obstructive pneumonia secondary to the multiple lesions of the lung cancer. For this reason she is being placed on broad-spectrum antibiotics. Will also get albuterol breathing treatments and steroids for reduction of airway edema. 12/27/17 Overall she appears to be showing improvement. Overall she appears to be shown improvement. Continue antibiotics for the suspected obstructive pneumonia. Continue albuterol and steroids for respiratory support. Pulmonary embolus small and likely will be effectively treated with the increased dosage of Xarelto. Wean oxygen to a baseline 3 to 4 L 12/28/17 Patient does appear less acutely ill today. Continue antibiotics broad- spectrum. Patient remains on oxygen however she is on 3 L at base level at home. 12/29/17 Patient has been placed on DuoNeb treatment 4 times a day. Breakthrough medication of albuterol at at nebulized unit dose as well. Patient has been feeling moderately nervous and for this reason we're discontinuing steroids at this time Remain on antibiotics for likely post obstructive pneumonia. Continue on Xarelto has no alternative to heparinoids the patient's request. 12/30/17 Account for the developing fluid overload in this patient but we're starting around with 40 mg of Lasix this morning to be repeated again at midafternoon. Hopefully some diuresis will show improvement for her fluid overload. She had been put on a very small dose of Xanax overnight (0.25 mg Q6 hours) this does appear to be helping but it makes her acutely confused and family does show some appropriate concern for this side effect despite the explanation. I've ordered a chest x-ray and this does not appear to be significantly different. EKG is also reassuring that there is been no acute changes. I've explained to the patient that this is not a positive step but we will attempt give fluids off and hopefully improve her overall respiratory distress. Dr. Rodriguez consulted and recommends HCAP antibiotics and transition off of Xarelto and place her on heparin drip without a loading dose Patient is in fairly significant respiratory distress and critically ill, showing only some mild improvement toward the end of the evening. 01/01/18 Patient did not improve significantly with Lasix. Although she believes that she is urinate a lot her weights of not decline much. Still she does sound less wet on auscultation today. We will continue the broad-spectrum age Antibiotics cefepime vancomycin and Levaquin for her at this time. She was unavailable therm throughout the majority of the day but I believe that she may benefit from BiPAP. We are placing her back on BiPAP again for the night. And based upon her respiratory improvement then we may make further decisions. I also restarted her on her Solu-Medrol because ceasing this did coincide with her decline and respiratory function. She is noted lead anxious due to the understanding of her impending demise from cancer as well as the physiologic respiratory distress. She becomes altered on Xanax so we are performing a trial of low doses of Geodon as well as Ativan as alternatives. We can make further modifications based upon a response to those Outcome remains poor and I am uncertain if she will even improve enough to leave the hospital. She remains hopeful because of her many children and grandchildren to put up the best fight that she possibly can; patient elected DO NOT INTUBATE order and chemical code only. 01/01/18 WBC has been climbing, though she remains on broad spectrum abx - vanco, cefepime, levaquin -- steroids were reintroduced on 12/31/17 corresponding to a resp decline -- ? steroids contributing to hallucinations though benefit may outweigh risk. Today ch day 6 of abx -- will dc levaquin given encephalopathy. Will dc hydrocodone, promethazine/codeine (allergy noted though this med was on her home med list). Schedule haldol 1 mg Q4h for encephalopathy. ABG yesterday was not showing significant resp acidosis/co2 retention. Weight continues to climb -- will repeat CXR today. cont heparin for PE Start monitoring blood glucose, add SSI and resume metformin if PO intake improves BP under reasonable control; losartan remains on hold. 01/02/18 Persistent respiratory distress, renal function deteriorating. Antibiotics adjusted for renal function per pharmacy. Extended family gathering in anticipation of patient's . Family requests that current care be continued utilizing BiPAP if patient will permit and chemical code pending arrival of additional family member. Morphine added for air hunger/respiratory distress. 01/03/18 Continued decline in status. Family edging toward comfort care and has requested that Accu-Cheks be discontinued overnight in addition to prior request that BiPAP and scheduled breathing treatments be discontinued. Family at bedside at all times in essentially a watch. and son converted to DO NOT RESUSCITATE status yesterday evening. At present they would like antibiotics and anticoagulation continued but other oral medications discontinued due to patient's somnolence. Continue morphine, lorazepam, and Haldol as needed for respiratory distress, anxiety, and hallucinations. Has been on high-dose Solu-Medrol since 12/26-dose decreased to 62.5 mg every 12 today. Heparin drip discontinued, converted to Lovenox 1.5 mg/kg subcutaneous daily Nursing report slowing of respiratory rate late this afternoon and evening. Dr. Navarro and Dr. Rodriguez notified of deterioration and anticipated . Sister arrives this evening; we'll readdress option of full comfort care and hospice tomorrow if patient survives the night. 01/04/18 Worsening renal function, patient unresponsive; no oral intake 48 hours. Day 10 cefepime and vancomycin. Late in the day family met with [facility] and signed on converting to full comfort care and discontinuing antibiotics, steroids, and anticoagulants. 01/05/18 Multiple family members present when I visited with family this morning shortly after patient was pronounced . Daughter reports that the patient was restless through the chemistry intern and required multiple doses of morphine and lorazepam. Patient rested quietly and peacefully this morning with several family members present. Extended family has subsequently gathered and her instructor flying has visited. due to respiratory failure due to lung cancer. Discharge Plan - Discharge Disposition Discharge Date: 01/05/18 Disposition: 20 *Condition: Stable Reason For Visit (Visit label in EMR): hypoxia right lower lobe pulmonary embolus - Discharge Medications *Discharge Medications: No Action Metformin HCl 1,000 mg PO BID Meloxicam 7.5 mg PO BID Losartan [Cozaar] 50 mg PO DAILY Benzonatate 100 mg PO TID PRN PRN Reason: Cough Erlotinib HCl [Tarceva] 100 mg PO DAILY Triamcinolone 0.5% Cream 15 G [Kenalog 0.5%] 1 applicatio TOP BID PRN PRN Reason: Prn Orders Rivaroxaban [Xarelto] 20 mg PO HS Gabapentin 300 mg PO TID Megestrol Acetate 800 mg PO DAILY Hydrocodone/APAP 7.5/325 [[place] 7.5/325] 1 tab PO QID PRN PRN Reason: Pain Promethazine + Cod Liq [Phenergan + Codeine] 5 ml PO Q4H PRN PRN Reason: Cough Albuterol Sulfate [Proair Hfa] 2 puff INH Q4H PRN PRN Reason: Prn Orders - Referrals/Follow Up - Patient Handouts - Dismissal Complete Discharge Instructions are:: Complete Physician Narrative - Narrative Attestation Narrative: Date: 01/05/18 Time: 0
== END 2018-01-05 07:33 | disposition expired | DRG 175 ==
LOC: ED 10:59 → SUATTDRO 14:56 → EDHOLD 14:56 → MED 15:06
PROVIDERS: ADMIT Family Medicine; ATTEND Internal Medicine